=== PATIENT | female | born 1945 | race Caucasian/White ===

== ENCOUNTER 2021-07-21 21:44 | Emergency (ER) | payer MEDICARE, BC, SELFPAY ==
--- NOTE | ~2021-07-21 | CT_ITS ---
EXAMINATION: CT abdomen pelvis wo con DATE: 07/21/2021 22:56 INDICATION: Left upper quadrant abdominal pain TECHNIQUE: Computed tomography (CT) of the abdomen and pelvis was performed without intravenous contr ast. The dose-length product (DLP) was 1282.47 mGy-cm. Automated exposure control and iterative recon struction technique were employed. COMPARISON: None FINDINGS: Minimal dependent atelectasis is present in the lung bases. The heart size is normal. There is a small sliding hiatal hernia. The liver, spleen, pancreas, and adrenal glands are normal. The ga llbladder is surgically absent. The kidneys are unremarkable. No pathologically enlarged abdominal or pelvic lymph nodes are identified. There is no free intraperitoneal gas or evidence of bowel obstruc tion. There are multiple ventral hernias containing fat which can be seen in the right upper quadrant as well as a moderate-sized umbilical hernia containing fat. There is severe lumbar spondylosis. IMPRESSION: 1. No CT correlate for the patient's symptoms. 2. Multiple ventral hernias containing fat. Reviewed, dictated and finalized at location F. PRESS MANAGER
[2021-07-21 21:46] VITALS: BP 138/62; PULSE 64; RESP 14; TEMP 36.4; O2SAT 100
[2021-07-21 22:15] LABS: Basophils Absolute Auto 0.1 K/mm3 (0.0-0.1); Basophils Percent Auto 0.8 % (0.2-1.2); Eosinophils Absolute Auto 0.3 K/mm3 (0-0.3); Eosinophils Percent Auto 2.3 % (0-4.4); Hematocrit 42.5 % (37.0-47.0); Immature Granulocyte Absolute 0.04 K/mm3 (0.00-0.031); Immature Granulocyte Percent A 0.3 % (0-0.5); Lymphocytes Absolute Auto 2.06 K/mm3 (0.9-3.2); Lymphocytes Percent Auto 17.1 % (18.3-44.2); Mean Corpuscular HGB Conc 32.9 g/dl (32-36); Mean Corpuscular Hemoglobin 31.7 pg (26-34); Mean Corpuscular Volume 96.2 fl (80-100); Mean Platelet Volume 9.6 fl (7.4-10.4); Monocytes Absolute Auto 0.6 K/mm3 (0.1-0.6); Monocytes Percent Auto 4.9 % (2.6-8.5); Neutrophils Percent Auto 74.6 % (45.5-73.1); Platelet Count Result 313 k/mm3 (150-375); Red Blood Count 4.42 M/mm3 (4.2-5.4); Red Cell Distribution Width 12.5 % (11.5-14.5); White Blood Count 12.1 K/mm3 (4.5-10.0)
[2021-07-21 22:23] LABS: Prothrombin Time 13.3 Seconds (11.1-14.7)
[2021-07-21 22:24] LABS: Alanine Aminotransferase 19 U/L (4-35); Albumin Level 4.7 g/dL (3.5-5.1); Alkaline Phosphatase 87 U/L (38-126); Anion Gap 6 mmol/L (8-16); Aspartate Amino Transferase 32 U/L (14-36); Bilirubin,Total 0.5 mg/dL (0.2-1.3); Blood Urea Nitrogen 41 mg/dL (7-17); Calcium 9.7 mg/dL (8.4-10.2); Carbon Dioxide 28 mmol/L (22-30); Chloride 102 mmol/L (98-107); Estimated CRCL calculation 24 ml/min; Estimated Glomerular Filt Rate 29; Glucose 154 mg/dL (65-110); Lipase 176 U/L (23-300); Potassium 4.5 mmol/L (3.4-5.0); Sodium 136 mmol/L (137-145)
[2021-07-21 22:33] LABS: Add Urine Microscopic? NO; Appearance Urine Clear (Clear); Bilirubin Urine Negative (Negative); Blood Urine Negative (Negative); Color Urine Yellow (Yellow); Glucose Urine UA Negative (Negative); Ketones Urine Negative (Negative); Leukocyte Esterase Ur Negative LEU/UL (Negative); Nitrate Urine Negative (Negative); Protein Urine Negative (Negative); Specific Grav Ur 1.009 (1.001-1.035); Urobilinogen Urine Negative mg/dL (<2.0)
--- NOTE | 2021-07-21 23:43 | ED.GENADULT ---
HPI - General Adult General Chief complaint: Abdominal Pain Stated complaint: abd pain Time Seen by Provider: 07/21/21 21:44 Source: RN notes reviewed History of Present Illness HPI narrative: Patient presents to emergency department from [facility] via EMS for nausea vomiting. Patient is a poor historian with history of dementia and ANO x1 at baseline history is per the patient as well as staff at [facility]. Per [facility] the patient had one episode of emesis this evening patient also questionably complaining of upper abdominal pain. Per staff there is question of black stools as well. Patient is currently laying in bed she denies any pain at this time denies any nausea patient not currently on any blood thinner Related Data Allergies Allergy/AdvReac Type Severity Reaction Status Date / Time hydrocodone Allergy Intermediate VOMITING Verified 07/21/21 21:59 morphine Allergy Intermediate VOMITING Verified 07/21/21 21:59 amoxicillin Allergy Unknown Unknown Verified 07/21/21 21:59 codeine Allergy Unknown Unknown Verified 07/21/21 21:59 Sulfa (Sulfonamide Allergy Unknown Unknown Verified 07/21/21 21:59 Antibiotics) Review of Systems Review of Systems: Gen.: Denies fevers or chills ENT: Denies congestion Respiratory: Denies shortness of breath CV: Denies chest pain GI: See HPI Musculoskeletal: Denies back pain Neuro: Denies headache Skin: Denies rash Except as documented, all other systems reviewed and negative [facility] Past Medical History Medical History (Updated 07/22/21 @ 00:15 by Farzad Everett DO) Dementia Social History Social History (Updated 07/21/21 @ 23:44 by Farzad Everett DO) Smoking status: Never smoker Exam Narrative: APPEARANCE: No acute distress, nontoxic, resting in bed EYES: EOMI HEENT: Normocephalic, atraumatic, OMM RESPIRATORY: No respiratory distress Clear to auscultation bilaterally with no rhonchi wheezing or rales. CARDIOVASCULAR: Regular rate and rhythm without murmurs rubs or gallops. ABDOMINAL: Soft, nontender, nondistended, no rebound or guarding Rectal: No hemorrhoids or fissures small amount of soft brown stool that is Hemoccult negative MUSCULOSKELETAl: Moves all extremities. No clubbing, cyanosis or edema. NEURO: Awake and alert x 1. Following commands, speech normal, no focal deficits SKIN:: Warm, dry. No rashes lesions or abrasions PSYCHIATRIC: Normal affect/mood, Course Course Emergency Course: Repeat abdominal exam remains soft and nontender Discussed with Dr. Marti presentation work-up. Discussed lab results including creatinine of 1.7. At this time agrees with plan for discharge states will follow with BMP as outpatient Discussed with patient results of workup and diagnosis. Discussed need for follow-up with primary care, proper use of medication, and reasons to return to the emergency department. Patient understands and agrees to current treatment plan Vital Signs Vital signs: Vital Signs Temperature 97.5 F L 07/21/21 21:46 Pulse Rate 64 07/21/21 21:46 Respiratory Rate 14 07/21/21 21:46 Blood Pressure 138/62 07/21/21 21:46 Pulse Oximetry 100 07/21/21 21:46 Temperature 97.5 F L 07/21/21 21:46 Pulse Rate 87 07/22/21 00:50 Respiratory Rate 15 07/22/21 00:50 Blood Pressure 109/62 07/22/21 00:50 Pulse Oximetry 100 07/22/21 00:50 Medical Decision Making [facility] Narrative Medical decision making narrative: Patient presented for episode nausea vomiting questionable left upper quadrant pain no abdominal pain on exam in ED. Rectal exam performed with heme-negative stool. Patient seen in room and had noticed this while in ED and discussed with Dr. Marti will follow as an outpatient Vital Signs Vital Signs: Vital Signs Temperature 97.5 F L 07/21/21 21:46 Pulse Rate 64 07/21/21 21:46 Respiratory Rate 14 07/21/21 21:46 Blood Pressure 138/62 07/21/21 21:46 Pulse Oximetry 100 07/21/21 21:46 Temperature 97.5 F L 07/21/21 21:46
[2021-07-21 23:44] VITALS: BP 92/59; PULSE 66; RESP 17; O2SAT 99
[2021-07-21] MEDS: SODIUM CHLORIDE 0.9% IV 1,000 ML 999 ML IV CONT (23:44)
[2021-07-21 23:49] VITALS: BP 127/68; PULSE 66; O2SAT 99
--- NOTE | 2021-07-22 00:33 | PC.NURSE ---
called [facility] to request transport. ETA [id number]
[2021-07-22 00:50] VITALS: BP 109/62; PULSE 87; RESP 15; O2SAT 100
--- NOTE | 2021-07-22 01:01 | PC.NURSE ---
[facility] here.
== END 2021-07-22 01:16 ==
PROVIDERS: Emergency Provider Emergency Medicine; PCP Family Medicine
DX: R11.2 Nausea with vomiting, unspecified (principal); N28.9 Disorder of kidney and ureter, unspecified; F03.90 Unspecified dementia, unspecified severity, without behavioral disturbance, psychotic disturbance, mood disturbance, and anxiety; Z88.6 Allergy status to analgesic agent; Z88.0 Allergy status to penicillin; Z88.5 Allergy status to narcotic agent; Z88.2 Allergy status to sulfonamides
CPT/HCPCS: 36415; 74176; 80053; 81003; 83605; 83690; 85025; 85610; 85730; 96360; 99284; J7030

== ENCOUNTER 2021-12-24 19:28 | Emergency (ER) | payer MEDICARE, BC, SELFPAY ==
[2021-12-24] VITALS (8 sets, daily range): BP systolic 70–120; BP diastolic 34–71; PULSE 66–95; RESP 18–19; TEMP 36.6; O2SAT 95–99
--- NOTE | ~2021-12-24 | CT_ITS ---
EXAMINATION: CT abdomen pelvis wo con DATE: 12/25/2021 01:00 INDICATION: Diarrhea. Hernia. TECHNIQUE: Computed tomography (CT) of the abdomen and pelvis was performed without intravenous contr ast. The dose-length product was 1427.21 mGy-cm. Automated exposure control and iterative reconstruct ion technique were employed. COMPARISON: CT dated 07/21/2021. FINDINGS: Patchy groundglass opacities of the lower lungs. There is a 6 mm left lower lobe nodule. Th is area of the lung was not included on prior examination for comparison. There is dependent atelecta sis. Heart size normal. No significant pleural or pericardial effusion. There is a hiatal hernia. The re are multiple ventral hernias containing fat, largest in the periumbilical location. The liver, spleen, pancreas, adrenal glands and kidneys are unremarkable. Nonobstructive bowel gas pa ttern. No abnormal pelvic masses or fluid collections. No free air or free fluid. Multiple osseous genevieve cencies are identified throughout the visualized skeleton.. Correlate clinically for history of malig princess. Advanced lower thoracic and lumbar spondylosis with near complete loss of disc space at L2-3 a nd L3-4. IMPRESSION: 1. Patchy groundglass opacities of the lower lungs, suspicious for pneumonia. 6 mm left lower lobe no dule is nonspecific, most likely infectious/inflammatory. Recommend follow-up low dose CT chest in 6 months. 2: Multiple ventral abdominal wall hernias containing fat, largest in the periumbilical location. 3: Multiple lucencies throughout the visualized osseous structures which may represent regional oste openia, although metastatic disease and myeloma are considerations. Correlate clinically for history of malignancy. Reviewed, dictated and finalized at location A. IMPRESSION: 1. Patchy groundglass opacities of the lower lungs, suspicious for pneumonia. 6 mm left lower lobe nodule is nonspecific, most likely infectious/inflammatory. Recommend follow-up low dose CT chest in 6 months. 2: Multiple ventral abdominal wall hernias containing fat, largest in the periu mbilical location. 3: Multiple lucencies throughout the visualized osseous structures which may r epresent regional osteopenia, although metastatic disease and myeloma are consi derations. Correlate clinically for history of malignancy.
[2021-12-24] MEDS: SODIUM CHLORIDE 0.9% IV 1,000 ML 999 ML IV CONT (20:00)
[2021-12-24 20:07] LABS: Appearance Urine Clear (Clear); Bilirubin Urine Negative (Negative); Blood Urine Negative (Negative); Color Urine Yellow (Yellow); Glucose Urine UA Negative (Negative); Ketones Urine Negative (Negative); Leukocyte Esterase Ur Negative LEU/UL (Negative); Nitrate Urine Negative (Negative); Protein Urine Negative (Negative); Urobilinogen Urine 0.2 mg/dL (<2.0)
[2021-12-24 20:07] LABS: Basophils Absolute Auto 0.1 K/mm3 (0.0-0.1); Basophils Percent Auto 1.3 % (0.2-1.2); Eosinophils Absolute Auto 0.5 K/mm3 (0-0.3); Eosinophils Percent Auto 5.4 % (0-4.4); Hematocrit 40.2 % (37.0-47.0); Hemoglobin 12.9 g/dL (12.0-15.0); Immature Granulocyte Absolute 0.04 K/mm3 (0.00-0.031); Immature Granulocyte Percent A 0.4 % (0-0.5); Lymphocytes Absolute Auto 2.43 K/mm3 (0.9-3.2); Lymphocytes Percent Auto 25.8 % (18.3-44.2); Mean Corpuscular HGB Conc 32.1 g/dl (32-36); Mean Corpuscular Hemoglobin 30.6 pg (26-34); Mean Corpuscular Volume 95.3 fl (80-100); Mean Platelet Volume 9.4 fl (7.4-10.4); Monocytes Absolute Auto 0.7 K/mm3 (0.1-0.6); Monocytes Percent Auto 7.8 % (2.6-8.5); Neutrophils Absolute Auto 5.6 K/mm3 (1.3-6.7); Neutrophils Percent Auto 59.3 % (45.5-73.1); Platelet Count Result 359 k/mm3 (150-375); Red Blood Count 4.22 M/mm3 (4.2-5.4); White Blood Count 9.4 K/mm3 (4.5-10.0)
[2021-12-24 20:10] LABS: Mucus Urine Rare /lpf; RBC Urine 0-2 /hpf (0-2); Squamous Epithelial Cell Urine Rare /hpf (Few); WBC Urine 0-3 /hpf
[2021-12-24 20:13] LABS: Add Urine Microscopic? YES
[2021-12-24 20:17] LABS: Alanine Aminotransferase 17 U/L (6-35); Albumin Level 4.4 g/dL (3.5-5.1); Alkaline Phosphatase 81 U/L (38-126); Anion Gap 12 mmol/L (8-16); Aspartate Amino Transferase 27 U/L (14-36); Bilirubin,Total 0.4 mg/dL (0.2-1.3); Blood Urea Nitrogen 53 mg/dL (7-17); Calcium 9.2 mg/dL (8.4-10.2); Carbon Dioxide 24 mmol/L (22-30); Chloride 104 mmol/L (98-107); Estimated CRCL calculation 24 ml/min; Estimated Glomerular Filt Rate 26; Glucose 154 mg/dL (65-110); Lipase 215 U/L (23-300); Potassium 4.8 mmol/L (3.4-5.0); Sodium 140 mmol/L (137-145)
--- NOTE | 2021-12-24 21:01 | ED.GENADULT ---
HPI - General Adult General Chief complaint: Seizure Stated complaint: SYNCOPE VS SEIZURE Time Seen by Provider: 12/24/21 19:35 History of Present Illness HPI narrative: Patient is a 76-year-old female who presents the ER with syncope. Patient was getting up when she became weak. She then lost consciousness in front of her staff. Did not strike her head. Patient then had some increased confusion from her baseline. Upon arrival here patient had massive bowel movement. Patient had not previously been sick or vomiting or having diarrhea. Related Data Allergies Allergy/AdvReac Type Severity Reaction Status Date / Time hydrocodone Allergy Intermediate VOMITING Verified 07/21/21 21:59 morphine Allergy Intermediate VOMITING Verified 07/21/21 21:59 amoxicillin Allergy Unknown Unknown Verified 07/21/21 21:59 codeine Allergy Unknown Unknown Verified 07/21/21 21:59 Sulfa (Sulfonamide Allergy Unknown Unknown Verified 07/21/21 21:59 Antibiotics) Review of Systems Review of Systems: ROS unobtainable: Yes unobtainable due to mental status PMFSH Past Medical History Medical History (Updated 12/25/21 @ 01:57 by Shukri Mckinney MD) CHF (NYHA class III, ACC/AHA stage C) Dementia Dementia due to Alzheimer's disease Hypertension, benign Hypokalemia Impaired mobility and ADLs Surgical History Surgical History (Updated 12/24/21 @ 21:09 by Shukri Mckinney MD) History of section History of cholecystectomy Hx of total knee arthroplasty Social History Social History (Updated 07/21/21 @ 23:44 by Farzad Everett DO) Smoking status: Never smoker Exam Narrative: GENERAL: Chronically ill-appearing, well-nourished, and in no acute distress. HEAD: Normocephalic, atraumatic. EYES: PERRL and EOMI. ENT: Mucous membranes moist. CHEST: Clear to auscultation. No respiratory distress. HEART: Regular rate and rhythm. Normal peripheral pulses. ABDOMEN: Soft, nontender, nondistended, ventral hernias palpated but not reducible. EXTREMITIES: Normal range of motion. No edema. SKIN: Warm, dry, no rash. NEURO: Alert and oriented x1. Course Course Emergency Course: Patient resting comfortably. It was received 1.5 L of fluid. After the first liter of fluid patient had normal orthostatics with laying to sitting. When she stood up her blood pressure did drop so an additional 500 mL was given. Patient then developed blood pressures in the 70s but was asymptomatic and looks well with strong pulses. Ultimately blood pressure cuff was switched to the right arm and patient had a blood pressure in the 130s followed by multiple blood normal blood pressures. CT of the abdomen was unrevealing. Lab work unremarkable with exception of bump in patient's creatinine with elevated BUN as well which correlates with dehydration. Vital Signs Vital signs: Vital Signs Temperature 97.9 F 12/24/21 19:45 Pulse Rate 66 12/24/21 19:45 Respiratory Rate 18 12/24/21 19:45 Blood Pressure 107/57 L 12/24/21 19:45 Pulse Oximetry 95 12/24/21 19:45 Oxygen Delivery Room Air 12/24/21 19:45 Temperature 97.9 F 12/24/21 19:45 Pulse Rate 66 12/25/21 03:02 Respiratory Rate 13 12/25/21 03:02 Blood Pressure 132/74 12/25/21 03:02 Pulse Oximetry 99 12/25/21 03:02 Oxygen Delivery Room Air 12/24/21 19:45 Medical Decision Making Vital Signs Vital Signs: Vital Signs Temperature 97.9 F 12/24/21 19:45 Pulse Rate 66 12/24/21 19:45 Respiratory Rate 18 12/24/21 19:45 Blood Pressure 107/57 L 12/24/21 19:45 Pulse Oximetry 95 12/24/21 19:45 Oxygen Delivery Room Air 12/24/21 19:45 Temperature 97.9 F 12/24/21 19:45 Pulse Rate 66 12/25/21 03:02 Respiratory Rate 13 12/25/21 03:02 Blood Pressure 132/74 12/25/21 03:02 Pulse Oximetry 99 12/25/21 03:02 Oxygen Delivery Room Air 12/24/21 19:45 Lab Data Result diagrams: 12/24/21 20:01 12/24/21 20:01 L
[2021-12-24] MEDS: SODIUM CHLORIDE 0.9% IV 500 ML 999 ML IV CONT (23:39)
[2021-12-25 00:28] VITALS: BP 133/58; PULSE 83; RESP 18; O2SAT 95
[2021-12-25 02:01] VITALS: BP 120/58; PULSE 74; RESP 17; O2SAT 100
[2021-12-25 02:02] VITALS: PULSE 70; RESP 18; O2SAT 99
[2021-12-25 03:02] VITALS: BP 132/74; PULSE 66; RESP 13; O2SAT 99
== END 2021-12-25 03:13 ==
PROVIDERS: Emergency Provider Emergency Medicine; PCP Family Medicine
DX: R55 Syncope and collapse (principal); R19.7 Diarrhea, unspecified; I50.9 Heart failure, unspecified; G30.9 Alzheimer's disease, unspecified; F02.80 Dementia in other diseases classified elsewhere, unspecified severity, without behavioral disturbance, psychotic disturbance, mood disturbance, and anxiety; I11.0 Hypertensive heart disease with heart failure; Z96.659 Presence of unspecified artificial knee joint
CPT/HCPCS: 36415; 74176; 80053; 81001; 83690; 85025; 96360; 96361; 99284; J7030; J7040

== ENCOUNTER 2022-02-19 14:22 | Inpatient (IN) | payer MEDICARE, BC, SELFPAY ==
[2022-02-19] VITALS (30 sets, daily range): BP systolic 76–126; BP diastolic 54–102; PULSE 73–100; RESP 12–24; TEMP 36.1–36.6; O2SAT 90–100; BMI 36.7
--- NOTE | ~2022-02-19 | XR_ITS ---
EXAMINATION: XR chest 1V portable INDICATION: Weakness TECHNIQUE: Portable AP chest at 1456 hours COMPARISON: 10/28/2017 FINDINGS: The lungs are free of acute opacities. No pleural effusion or pneumothorax. The cardiomedia stinal silhouette is normal. The lung volumes are low. IMPRESSION: 1. No acute cardiopulmonary abnormality. Reviewed, dictated and finalized at location L.
--- NOTE | ~2022-02-19 | CT_ITS ---
EXAMINATION: CT brain wo con DATE: 02/20/2022 09:07 INDICATION: Altered mental status TECHNIQUE: Computed tomography (CT) of the head was performed without intravenous contrast. Sagittal and coronal reconstructions were performed. The mA was adjusted according to patient size. Iterative reconstruction technique was employed. The dose-length product was 832.33 mGy-cm. COMPARISON: Brain MR dated 04/28/2015 FINDINGS: No acute intracranial hemorrhage, acute infarction or abnormal extra axial fluid collection. There is extensive scattered white matter hypoattenuation consistent with chronic small vessel ischemic disea se. Symmetric prominence of the sulci and ventricles consistent with moderate age-appropriate diffuse cerebral volume loss. . No mass/mass effect. The orbits, paranasal sinuses and mastoid air cells ar e normal. IMPRESSION: 1. No acute intracranial process. 2. Age-related changes including moderate diffuse volume loss and extensive scattered white matter hy poattenuation consistent with chronic small vessel ischemic disease. Reviewed, dictated and finalized at location A. IMPRESSION: 1. No acute intracranial process. 2. Age-related changes including moderate diffuse volume loss and extensive sca ttered white matter hypoattenuation consistent with chronic small vessel ischem ic disease.
--- NOTE | 2022-02-19 14:50 | ECG_ITS ---
Measurements Intervals [place] Rate: 80 P: 44 IN: 150 QRS: -22 QRSD: 99 T: 66 QT: 379 QTc: 439 Interpretive Statements SINUS RHYTHM VENTRICULAR BIGEMINY BORDERLINE ST-T WAVE ABNORMALITY- HIGH LATERAL LEADS BASELINE ARTIFACT- I, II, III, AVR, AVL, AVF, V1-V6 ABNORMAL ECG Electronically Signed On 02-19-2022 16:07:12 CDT by Sukhjinder Rader D.O.
[2022-02-19] MEDS: SODIUM CHLORIDE 0.9% IV 1,000 ML 999 ML IV CONT ×2 (15:33→16:30)
[2022-02-19 15:45] LABS: Basophils Absolute Auto 0.1 K/mm3 (0.0-0.1); Basophils Percent Auto 0.4 % (0.2-1.2); Eosinophils Percent Auto 0.1 % (0-4.4); Hematocrit 45.9 % (37.0-47.0); Hemoglobin 14.3 g/dL (12.0-15.0); Immature Granulocyte Absolute 0.04 K/mm3 (0.00-0.031); Immature Granulocyte Percent A 0.3 % (0-0.5); Lymphocytes Absolute Auto 2.56 K/mm3 (0.9-3.2); Lymphocytes Percent Auto 18.5 % (18.3-44.2); Mean Corpuscular HGB Conc 31.2 g/dl (32-36); Mean Corpuscular Hemoglobin 30.9 pg (26-34); Mean Corpuscular Volume 99.1 fl (80-100); Mean Platelet Volume 10.4 fl (7.4-10.4); Monocytes Absolute Auto 0.8 K/mm3 (0.1-0.6); Monocytes Percent Auto 5.6 % (2.6-8.5); Neutrophils Absolute Auto 10.4 K/mm3 (1.3-6.7); Neutrophils Percent Auto 75.1 % (45.5-73.1); Platelet Count Result 403 k/mm3 (150-375); Red Blood Count 4.63 M/mm3 (4.2-5.4); Red Cell Distribution Width 13.2 % (11.5-14.5); White Blood Count 13.8 K/mm3 (4.5-10.0)
[2022-02-19 15:53] LABS: Appearance Urine Cloudy (Clear); Bilirubin Urine 1+ (Negative); Blood Urine Negative (Negative); Color Urine Yellow (Yellow); Glucose Urine UA Negative (Negative); Ketones Urine Trace mg/dL (Negative); Leukocyte Esterase Ur 3+ LEU/UL (Negative); Nitrate Urine Negative (Negative); Protein Urine Negative (Negative); Urobilinogen Urine 0.2 mg/dL (<2.0)
[2022-02-19 15:55] LABS: Lactic Acid Reflex 2.2 mmol/L (0.7-2.0)
[2022-02-19 15:58] LABS: Alanine Aminotransferase 27 U/L (6-35); Albumin Level 5.1 g/dL (3.5-5.1); Alkaline Phosphatase 92 U/L (38-126); Anion Gap 18 mmol/L (8-16); Aspartate Amino Transferase 28 U/L (14-36); Bilirubin,Total 0.7 mg/dL (0.2-1.3); Blood Urea Nitrogen 105 mg/dL (7-17); Calcium 9.8 mg/dL (8.4-10.2); Carbon Dioxide 26 mmol/L (22-30); Chloride 110 mmol/L (98-107); Estimated CRCL calculation 10 ml/min; Estimated Glomerular Filt Rate 10; Glucose 148 mg/dL (65-110); Lipase 327 U/L (23-300); Potassium 4.7 mmol/L (3.4-5.0); Sodium 154 mmol/L (137-145)
[2022-02-19 15:59] LABS: Bacteria Urine 3+ /hpf; Mucus Urine Rare /lpf; RBC Urine 0-2 /hpf (0-2); Squamous Epithelial Cell Urine Few /hpf (Few); WBC Urine 51-75 /hpf
[2022-02-19 16:00] LABS: Add Urine Microscopic? YES
--- NOTE | 2022-02-19 16:18 | ED.GENADULT ---
HPI - General Adult General Chief complaint: Fall Stated complaint: unwitnessed fall yesterday - increased weakness Time Seen by Provider: 02/19/22 14:33 History of Present Illness HPI narrative: Patient is a 76-year-old female who presents ER with weakness worsening over the last 2 days. Patient had an unwitnessed fall yesterday. No reports of injury Patient is awake but not oriented. She does not follow commands. There is no evidence of trauma. Related Data Allergies Allergy/AdvReac Type Severity Reaction Status Date / Time hydrocodone Allergy Intermediate VOMITING Verified 02/19/22 15:36 morphine Allergy Intermediate VOMITING Verified 02/19/22 15:36 amoxicillin Allergy Unknown Unknown Verified 02/19/22 15:36 codeine Allergy Unknown Unknown Verified 02/19/22 15:36 Sulfa (Sulfonamide Allergy Unknown Unknown Verified 02/19/22 15:36 Antibiotics) Review of Systems Review of Systems: ROS unobtainable: Yes unobtainable due to medical condition PMFSH Past Medical History Medical History (Updated 02/19/22 @ 16:21 by Shukri Mckinney MD) CHF (NYHA class III, ACC/AHA stage C) Dementia Dementia due to Alzheimer's disease Hypertension, benign Hypokalemia Impaired mobility and ADLs Surgical History Surgical History (Updated 12/24/21 @ 21:09 by Shukri Mckinney MD) History of section History of cholecystectomy Hx of total knee arthroplasty Social History Social History (Updated 07/21/21 @ 23:44 by Farzad Everett DO) Smoking status: Never smoker Exam Narrative: GENERAL: Chronically ill-appearing, elderly, well-nourished.. HEAD: Normocephalic, atraumatic. ENT: Mucous membranes moist. CHEST: Clear to auscultation. No respiratory distress. HEART: Regular rate and rhythm. Normal peripheral pulses. ABDOMEN: Soft, nontender, nondistended. EXTREMITIES: Normal range of motion. No edema. SKIN: Warm, dry, no rash. NEURO: Awake and alert but not oriented and does not follow commands. PSYCH: Normal mood and affect. Course Course Emergency Course: Admit to hospitalist service. Patient given 2 L IV fluid as well as IV ceftriaxone for UTI. My normal adult exam Vital Signs Vital signs: Vital Signs Temperature 97.9 F 02/19/22 14:39 Pulse Oximetry 98 02/19/22 14:39 Temperature 97.5 F L 02/19/22 14:43 Pulse Rate 73 02/19/22 16:32 Respiratory Rate 18 02/19/22 16:32 Blood Pressure 103/77 02/19/22 16:32 Pulse Oximetry 97 02/19/22 16:32 Oxygen Delivery Room Air 02/19/22 14:52 Medical Decision Making Vital Signs Vital Signs: Vital Signs Temperature 97.9 F 02/19/22 14:39 Pulse Oximetry 98 02/19/22 14:39 Temperature 97.5 F L 02/19/22 14:43 Pulse Rate 73 02/19/22 16:32 Respiratory Rate 18 02/19/22 16:32 Blood Pressure 103/77 02/19/22 16:32 Pulse Oximetry 97 02/19/22 16:32 Oxygen Delivery Room Air 02/19/22 14:52 Lab Data Result diagrams: 02/19/22 15:33 02/19/22 15:33 Labs: Lab Results 02/19/22 02/19/22 02/19/22 Range/Units 15:33 15:33 15:33 WBC 13.8 H (4.5-10.0) K/mm3 RBC 4.63 (4.2-5.4) M/mm3 Hgb 14.3 (12.0-15.0) g/dL Hct 45.9 (37.0-47.0) % MCV 99.1 (80-100) fl MCH 30.9 (26-34) pg MCHC 31.2 L (32-36) g/dl RDW 13.2 (11.5-14.5) % Plt Count 403 H (150-375) k/mm3 MPV 10.4 (7.4-10.4) fl Immature Gran % (Auto) 0.3 (0-0.5) % Neut % (Auto) 75.1 H (45.5-73.1) % Lymph % (Auto) 18.5 (18.3-44.2) % Cocke % (Auto) 5.6 (2.6-8.5) % Eos % (Auto) 0.1 (0-4.4) % Baso % (Auto) 0.4 (0.2-1.2) % Lymph # (Auto) 2.56 (0.9-3.2) K/mm3 Cocke # (Auto) 0.8 H (0.1-0.6) K/mm3 Eos # (Auto) 0.0 (0-0.3) K/mm3 Baso # (Auto) 0.1 (0.0-0.1) K/mm3 Abs Immat Gran (auto) 0.04 H (0.00-0.031) K/mm3 Absolute Neuts (auto) 10.4 H (1.3-6.7) K/mm3 Absolute Nucleated RBC 0.0 (0.0-0.012) K/mm3 Nucleated RBC % 0.0 (0
[2022-02-19 16:22] LABS: SARS-CoV-2 RNA PCR Negative
--- NOTE | 2022-02-19 17:00 | PM.IMHP ---
H&P: HPI History of Present Illness Date/Time: 02/19/22 17:00 Chief Complaint: Weakness and altered mental status. Narrative: This is a 76-year-old female with history of dementia, diabetes, and hypertension who presented to the emergency department via EMS from [facility] for evaluation of weakness and altered mental status. She has her eyes closed majority of the time that I am in the room however she would open them to voice however she is not really following commands or answering questions. As such all of the following is obtained via a review of her electronic medical records. According to the triage note staff at [facility] have noticed that the patient has been increasingly weak the last several days and she has been refusing to eat and her urine output has dropped off. Last night she had a ground level fall which was reportedly related to weakness in her legs and she slipped and fell onto her buttocks without head trauma or injury. Blood pressures were soft on arrival to the ER but have improved with IV fluids. Pertinent labs include a marked elevation of BUN and creatinine from baseline and a sodium of 154. She was also found to have evidence of urinary tract infection and she is being admitted in this setting. She has no current complaints but again she really does not answer questions. Review of Systems Review of Systems: Unable to obtain given current clinical condition. [facility] Past Medical History Medical History (Updated 02/20/22 @ 00:41 by Clementina Romano PA-C) Chronic kidney disease Congestive heart failure Dementia due to Alzheimer's disease Hyperlipidemia Hypertension Osteoarthritis Surgical History Surgical History (Updated 02/20/22 @ 00:34 by Clementina Romano PA-C) History of benign breast biopsy Left. History of bilateral knee arthroplasty History of section X3 History of cholecystectomy History of excision of epidermal inclusion cyst Left neck. History of laparoscopy With adhesiolysis. History of toe surgery Right great toe joint replacement. Family History Family History (Updated 02/20/22 @ 00:34 by Clementina Romano PA-C) Other Acute myocardial infarction Cancer Social History Social History (Updated 02/20/22 @ 00:35 by Clementina Romano PA-C) Social History: The patient resides at an extended care facility. No alcohol, tobacco, or illicit substance use. Her daughter, Carlene Kidd, is her healthcare power of patent attorney. Code status: Full code. Meds Home Medications and Allergies Allergies Allergy/AdvReac Type Severity Reaction Status Date / Time hydrocodone Allergy Intermediate VOMITING Verified 02/19/22 15:36 morphine Allergy Intermediate VOMITING Verified 02/19/22 15:36 amoxicillin Allergy Unknown Unknown Verified 02/19/22 15:36 codeine Allergy Unknown Unknown Verified 02/19/22 15:36 Sulfa (Sulfonamide Allergy Unknown Unknown Verified 02/19/22 15:36 Antibiotics) Vital Signs Vital Signs - 24 hr 02/19/22 14:43 02/19/22 14:52 02/19/22 14:39 Temperature 97.5 F L 97.9 F Pulse Rate 77 85 Respiratory Rate 13 24 H Blood Pressure 93/83 L 76/55 L Pulse Oximetry 96 93 98 Oxygen Delivery Room Air 02/19/22 14:41 02/19/22 14:45 02/19/22 14:56 Temperature Pulse Rate 81 86 Respiratory Rate 16 12 Blood Pressure 93/83 L 84/67 L Pulse Oximetry 98 Oxygen Delivery 02/19/22 15:00 02/19/22 15:03 02/19/22 15:15 Temperature Pulse Rate 76 84 Respiratory Rate 13 17 14 Blood Pressure 106/75 Pulse Oximetry 98 Oxygen Delivery 02/19/22 15:17 02/19/22 15:31 02/19/22 16:32 Temperature Pulse Rate 83 83 73 Respiratory Rate 14 18 18 Blood Pressure 94/54 L 101/54 L 103/77 Pulse Oximetry 100 97 Oxygen Delivery 02/19/22 15:32 02/19/22 16:13 02/19/22 16:49 Temperature Pulse Rate 76 90 94 Respiratory Rate 15 16 14 Blood Pressure 103/77 Pulse Oximetry 97 97 Oxygen Delivery 02/19/22 16
[2022-02-19] MEDS: SODIUM CHLORIDE 0.9% IV 1,000 ML 125 ML IV CONT (18:08)
[2022-02-19 18:41] LABS: Reflex Lactic Acid Yes or No Add Lactic
[2022-02-19 19:17] LABS: Lactic Acid 1.2 mmol/L (0.7-2.0)
--- NOTE | 2022-02-19 20:57 | ADMGEN ---
This patient, Rody Ardon, was admitted to [facility] Surg Room 324-01. Patient/family oriented to hospital policies and general routines including ID bracelet, bed and alarms, visiting hours, pain management, procedures, bathroom and other care routines, personal items, smoking policy, room service/diet, and visiting hours. Information on how to activate the Rapid Response Team has been discussed. Patient/Family are encouraged to report perceived risks to care and to ask questions if they do not understand what they are told or what they should do.
[2022-02-19 21:51] LABS: Magnesium 2.8 mg/dL (1.6-2.3)
[2022-02-20] VITALS: BP 114/84; PULSE 83; RESP 20; TEMP 36.1; O2SAT 90
[2022-02-20 01:34] LABS: Anion Gap 12 mmol/L (8-16); Blood Urea Nitrogen 87 mg/dL (7-17); Calcium 8.7 mg/dL (8.4-10.2); Carbon Dioxide 23 mmol/L (22-30); Chloride 119 mmol/L (98-107); Estimated CRCL calculation 15 ml/min; Estimated Glomerular Filt Rate 16; Glucose 123 mg/dL (65-110); Magnesium 2.3 mg/dL (1.6-2.3); Sodium 154 mmol/L (137-145)
[2022-02-20] MEDS: DEXTROSE 5% 1,000 ML 1,000 ML 85 ML IV CONT ×2 (03:59→17:01)
[2022-02-20 04:52] LABS: Glucose Point of Care 109 mg/dl (65-105)
[2022-02-20 06:00] VITALS: BP 120/84; PULSE 69; RESP 20; TEMP 36.2; O2SAT 99
[2022-02-20 06:25] LABS: Hematocrit 41.4 % (37.0-47.0); Hemoglobin 12.7 g/dL (12.0-15.0); Mean Corpuscular HGB Conc 30.7 g/dl (32-36); Mean Corpuscular Hemoglobin 31.2 pg (26-34); Mean Corpuscular Volume 101.7 fl (80-100); Mean Platelet Volume 10.5 fl (7.4-10.4); Platelet Count Result 301 k/mm3 (150-375); Red Blood Count 4.07 M/mm3 (4.2-5.4); Red Cell Distribution Width 13.1 % (11.5-14.5)
[2022-02-20 06:36] LABS: Anion Gap 12 mmol/L (8-16); Blood Urea Nitrogen 80 mg/dL (7-17); Calcium 8.7 mg/dL (8.4-10.2); Carbon Dioxide 24 mmol/L (22-30); Chloride 118 mmol/L (98-107); Estimated CRCL calculation 17 ml/min; Estimated Glomerular Filt Rate 20; Glucose 119 mg/dL (65-110); Magnesium 2.4 mg/dL (1.6-2.3); Phosphorus 3.8 mg/dL (2.5-4.5); Potassium 4.1 mmol/L (3.4-5.0); Sodium 154 mmol/L (137-145)
[2022-02-20 08:05] LABS: Glucose Point of Care 118 mg/dl (65-105)
[2022-02-20 09:03] LABS: Sodium 153 mmol/L (137-145)
--- NOTE | 2022-02-20 09:34 | PM.IMPN ---
Progress Note: A&P Assessment and Plan (1) Metabolic encephalopathy: Code(s): G93.41 - Metabolic encephalopathy Status: Acute Assessment and Plan: - Etiology uncertain, but differential includes Acute UTI, Uremia, Hypernatremia, or just an exacerbation of her dementia. - Monitor labs and VS. - Ammonia level ordered. - Pt. converses only minimally and not purposefully. She will not follow all commands and she will not answer questions appropriately. (2) Acute on chronic kidney failure: Code(s): N17.9 - Acute kidney failure, unspecified; N18.9 - Chronic kidney disease, unspecified Status: Acute Assessment and Plan: - Elevated CR/BUN. Baseline is 1.7-2.0 - Concern for Uremia and does appear profoundly dehydrated. - Pt. did not receive her IVF last evening. They were turned on and then ran on the floor, as the pt. was not connected to the tubing. - Continue to monitor renal function with daily lab draws as well as continue to monitor UOP. - If no improvement after actually receiving the IVF, consider consult to Nephrology. (3) Hypernatremia: Code(s): E87.0 - Hyperosmolality and hypernatremia Status: Acute Assessment and Plan: - Reassess every 4 hours given the marginal decline secondary to the patient's fluids not infusing into her as was ordered. - Na currently 153. - Urine and serum osmolality are ordered as well as urine sodium. Dehydration vs. DI (4) Dehydration: Code(s): E86.0 - Dehydration Status: Acute Assessment and Plan: - See above POC. (5) Urinary tract infection: Code(s): N39.0 - Urinary tract infection, site not specified Status: Acute Assessment and Plan: - Urine culture is pending. Will follow to completion. - Continue IV abx. (6) Congestive heart failure: Code(s): I50.9 - Heart failure, unspecified Status: Acute Assessment and Plan: - No documentation in EMR. - Not currently symptomatic and appears to be euvolemic. - Continue to monitor hydration status with PE and labs. - Additional Plan Barrier to discharge: Resolution of marked Hypernatremia, urine culture, and resolution vs. improvement of ANABELL. Time Spent With Patient Time: 24 minutes Subjective Date/time seen: 02/20/22 09:42 This pleasantly confused, elderly female pt. who resides at a skilled nursing normally, was examined at the bedside today in interval assessment after being admitted to the hospital with ANABELL, UTI, Hypernatremia and metabolic encephalopathy. Patient is completely confused. She is alert and drinking orange juice upon my entry into the room as she is being fed by the patient acute care certified nursing assistant, however upon starting to talk to her she will smile at me and tell me well that it , but she will not answer any questions meaningfully if speak to me at all. She does not appear to be in any acute distress at this time. I was informed by the patient's RN that the IV fluids that were ordered for the patient which is D5 NS in light of her having hyperkalemia were started but not actually connected to the patient last night so the IV fluid renal over the floor and patient did not receive. This has been rectified and we will continue to monitor her sodium level every 4 hours. Urine culture is still pending. Review of Systems Review of Systems: Pt. will not answer questions to allow me to complete ROS, however, she does not appear to currently be in any distress at this time. ROS unobtainable: Yes unobtainable due to mental status Exam Const: General: comfortable and no acute distress Other: Elderly female patient sitting up in bed drinking orange juice at this time without any difficulty and she does not appear to be in any acute distress. She smiles pleasantly, but does not make any attempt to verbalize. HENMT: General nose exam: Normal nares present and no epistaxis Mouth: Yes moist mucous membranes Eyes: General: ap
[2022-02-20 11:43] LABS: Glucose Point of Care 150 mg/dl (65-105)
[2022-02-20 12:18] VITALS: BMI 10.0
[2022-02-20 12:36] LABS: Ammonia < 9 umol/L (9-30)
[2022-02-20 12:48] LABS: Sodium 153 mmol/L (137-145)
[2022-02-20 14:00] VITALS: BP 115/67; PULSE 70; RESP 14; TEMP 36.6; O2SAT 97
[2022-02-20 17:01] LABS: Sodium Urine Random 141 meq/L
[2022-02-20 17:04] LABS: Sodium 150 mmol/L (137-145)
[2022-02-20 17:05] LABS: Glucose Point of Care 88 mg/dl (65-105)
[2022-02-20] MEDS: SENNA/DOCUSATE SODIUM TABLET 1 TAB PO (17:05)
[2022-02-20 20:40] VITALS: PULSE 83; RESP 18; O2SAT 90
[2022-02-20 20:59] LABS: Sodium 146 mmol/L (137-145)
[2022-02-20] MEDS: DONEPEZIL HCL 10 MG TABLET PO (21:17)
[2022-02-20 21:38] VITALS: BP 117/75; PULSE 83; RESP 18; TEMP 36.1; O2SAT 90
[2022-02-21 00:03] LABS: Glucose Point of Care 105 mg/dl (65-105)
[2022-02-21 01:27] LABS: Sodium 144 mmol/L (137-145)
[2022-02-21 06:00] VITALS: BP 128/67; PULSE 62; RESP 16; TEMP 36.4; O2SAT 98
[2022-02-21 06:27] LABS: Basophils Absolute Auto 0.1 K/mm3 (0.0-0.1); Eosinophils Absolute Auto 0.3 K/mm3 (0-0.3); Eosinophils Percent Auto 3.2 % (0-4.4); Hematocrit 37.5 % (37.0-47.0); Hemoglobin 11.5 g/dL (12.0-15.0); Immature Granulocyte Absolute 0.02 K/mm3 (0.00-0.031); Immature Granulocyte Percent A 0.2 % (0-0.5); Lymphocytes Absolute Auto 3.54 K/mm3 (0.9-3.2); Lymphocytes Percent Auto 39.4 % (18.3-44.2); Mean Corpuscular HGB Conc 30.7 g/dl (32-36); Mean Corpuscular Hemoglobin 30.3 pg (26-34); Mean Corpuscular Volume 98.7 fl (80-100); Mean Platelet Volume 10.2 fl (7.4-10.4); Monocytes Absolute Auto 0.5 K/mm3 (0.1-0.6); Monocytes Percent Auto 5.8 % (2.6-8.5); Neutrophils Absolute Auto 4.5 K/mm3 (1.3-6.7); Neutrophils Percent Auto 50.4 % (45.5-73.1); Platelet Count Result 259 k/mm3 (150-375); Red Cell Distribution Width 12.7 % (11.5-14.5)
[2022-02-21 06:31] LABS: Alanine Aminotransferase 27 U/L (6-35); Albumin Level 3.7 g/dL (3.5-5.1); Alkaline Phosphatase 69 U/L (38-126); Anion Gap 10 mmol/L (8-16); Aspartate Amino Transferase 30 U/L (14-36); Bilirubin,Total 0.6 mg/dL (0.2-1.3); Blood Urea Nitrogen 51 mg/dL (7-17); Calcium 8.7 mg/dL (8.4-10.2); Carbon Dioxide 24 mmol/L (22-30); Chloride 109 mmol/L (98-107); Estimated CRCL calculation 26 ml/min; Estimated Glomerular Filt Rate 31; Glucose 113 mg/dL (65-110); Magnesium 1.9 mg/dL (1.6-2.3); Potassium 3.5 mmol/L (3.4-5.0); Sodium 143 mmol/L (137-145)
[2022-02-21 08:00] VITALS: BP 125/69; PULSE 65; RESP 18; TEMP 36.7; O2SAT 97
[2022-02-21 08:01] LABS: Glucose Point of Care 108 mg/dl (65-105)
[2022-02-21 08:57] VITALS: O2SAT 92
[2022-02-21] MEDS: CHOLECALCIFEROL 1,000 UNITS TABLET 5000 UNITS PO (09:04)
[2022-02-21] MEDS: MEMANTINE HCL XR 28 MG CAP PO (09:04)
[2022-02-21] MEDS: polyethylene glycoL 3350 17 GM POWD.PACK PO (09:04)
[2022-02-21] MEDS: POTASSIUM CHLORIDE 10 MEQ TABLET.ER PO (09:05)
[2022-02-21] MEDS: hydroCHLOROthiazide 25 MG TABLET PO (09:05)
[2022-02-21] MEDS: lisinopriL 2.5 MG TABLET PO (09:05)
[2022-02-21] MEDS: LORATADINE 10 MG TABLET PO (09:05)
[2022-02-21] MEDS: SENNA/DOCUSATE SODIUM TABLET 1 TAB PO ×2 (09:05→16:25)
[2022-02-21] MEDS: PANTOPRAZOLE 40 MG TABLET PO (09:05)
[2022-02-21 11:40] LABS: Glucose Point of Care 123 mg/dl (65-105)
--- NOTE | 2022-02-21 12:04 | PM.IMPN ---
Progress Note: A&P Assessment and Plan (1) Metabolic encephalopathy: Code(s): G93.41 - Metabolic encephalopathy Status: Acute Assessment and Plan: - Etiology uncertain, but differential includes Acute UTI, Uremia, Hypernatremia, or just an exacerbation of her dementia. - Monitor labs and VS. - Ammonia level performed yesterday and was <9. - Pt. converses only minimally and not purposefully. She will not follow all commands and she will not answer questions appropriately. (2) Acute on chronic kidney failure: Code(s): N17.9 - Acute kidney failure, unspecified; N18.9 - Chronic kidney disease, unspecified Status: Acute Assessment and Plan: - Elevated CR/BUN. Baseline is 1.7-2.0 - Concern for Uremia and does appear profoundly dehydrated. - Pt. did not receive her IVF last evening. They were turned on and then ran on the floor, as the pt. was not connected to the tubing. - Pt. with return to better than baseline renal function today with Creatinine of 1.6/51. - Continue to monitor renal function with daily lab draws as well as continue to monitor UOP. - If no improvement after actually receiving the IVF, consider consult to Nephrology. (3) Hypernatremia: Code(s): E87.0 - Hyperosmolality and hypernatremia Status: Acute Assessment and Plan: - Na currently normal at 143. Remains asymptomatic and we will discontinue Q4 hrs Sodium levels. - Urine and serum osmolality are ordered as well as urine sodium. Dehydration vs. DI - Most likely Dehydration related, but Urine and serum osmolalities are in process. (4) Dehydration: Code(s): E86.0 - Dehydration Status: Resolved Assessment and Plan: - See above POC. (5) Urinary tract infection: Code(s): N39.0 - Urinary tract infection, site not specified Status: Acute Assessment and Plan: - E.coli, sensitive to the Rocephin she is currently receiving grew out. - Continue IV abx. (6) Congestive heart failure: Code(s): I50.9 - Heart failure, unspecified Status: Acute Assessment and Plan: - No documentation in EMR. - Not currently symptomatic and appears to be euvolemic. - Continue to monitor hydration status with PE and labs. Time Spent With Patient Time: 15 minutes Subjective Date/time seen: 02/21/22 0920 This pleasantly confused female patient was examined at the bedside today in interval assessment for her Hypernatremia and UTI admission with encephalopathy. Her urine culture resulted this morning and it grew out E.coli that is sensitive to the Rocephin that she is receiving. In addition, her sodium today is corrected to 143. She is alert and although she does not say much, when you say her name, she turns to your direction and makes eye contact. She is a poor historian, but when asked if she is having any pain, she says, no. I asked where she was and she said, here. She is otherwise not oriented. Pt. does not appear to have any acute distress at this time and appears comfortable. Review of Systems Review of Systems: ROS unobtainable: Yes unobtainable due to mental status Exam Const: General: comfortable and no acute distress Other: Mostly non-verbal. She answers correctly to whether or not she has pain. She does appear to be comfortable which would be in line with her reply. HENMT: General nose exam: Normal nares present and no epistaxis Mouth: Yes moist mucous membranes Eyes: General: appearance normal, both eyes and all related structures Sclera: sclerae normal Pupils: Equal, round and reactive pupils present Other: Pt does not follow commands to assess the EOM's. Neck: Neck: supple and no JVD Thyroid: thyroid normal Carotids: no bruits Lymphatic: lymphadenopathy not noted Resp: Effort & Inspection: normal respiratory effort Auscultation: clear to auscultation bilaterally Cardio: Rate: regular rate Rhythm: regular rhythm and regu
[2022-02-21 14:00] VITALS: BP 110/65; PULSE 73; RESP 16; TEMP 36.4; O2SAT 95
[2022-02-21] MEDS: DEXTROSE 5% 1,000 ML 1,000 ML 85 ML IV CONT (14:04)
[2022-02-21 16:53] LABS: Glucose Point of Care 111 mg/dl (65-105)
[2022-02-21 20:00] VITALS: PULSE 98; RESP 16; O2SAT 99
[2022-02-21] MEDS: DONEPEZIL HCL 10 MG TABLET PO (20:43)
[2022-02-21 22:00] VITALS: BP 100/55; PULSE 98; RESP 16; TEMP 37.1; O2SAT 99
[2022-02-21 22:10] LABS: Glucose Point of Care 127 mg/dl (65-105)
[2022-02-22] VITALS: BP 110/58; PULSE 88; RESP 16; TEMP 37.1; O2SAT 99
[2022-02-22] MEDS: DEXTROSE 5% 1,000 ML 1,000 ML 85 ML IV CONT (03:18)
[2022-02-22 05:43] VITALS: BP 102/60; PULSE 84; RESP 16; TEMP 36.9; O2SAT 99
[2022-02-22 06:16] LABS: Basophils Absolute Auto 0.1 K/mm3 (0.0-0.1); Basophils Percent Auto 0.6 % (0.2-1.2); Eosinophils Absolute Auto 0.4 K/mm3 (0-0.3); Eosinophils Percent Auto 3.8 % (0-4.4); Hematocrit 36.8 % (37.0-47.0); Immature Granulocyte Absolute 0.05 K/mm3 (0.00-0.031); Immature Granulocyte Percent A 0.5 % (0-0.5); Lymphocytes Absolute Auto 3.43 K/mm3 (0.9-3.2); Lymphocytes Percent Auto 31.6 % (18.3-44.2); Mean Corpuscular HGB Conc 32.6 g/dl (32-36); Mean Corpuscular Hemoglobin 31.2 pg (26-34); Mean Corpuscular Volume 95.6 fl (80-100); Mean Platelet Volume 10.2 fl (7.4-10.4); Monocytes Absolute Auto 0.7 K/mm3 (0.1-0.6); Monocytes Percent Auto 6.3 % (2.6-8.5); Neutrophils Absolute Auto 6.2 K/mm3 (1.3-6.7); Neutrophils Percent Auto 57.2 % (45.5-73.1); Platelet Count Result 266 k/mm3 (150-375); Red Blood Count 3.85 M/mm3 (4.2-5.4); Red Cell Distribution Width 12.4 % (11.5-14.5); White Blood Count 10.9 K/mm3 (4.5-10.0)
[2022-02-22 06:36] LABS: Alanine Aminotransferase 24 U/L (6-35); Albumin Level 3.6 g/dL (3.5-5.1); Alkaline Phosphatase 66 U/L (38-126); Anion Gap 11 mmol/L (8-16); Aspartate Amino Transferase 22 U/L (14-36); Bilirubin,Total 0.3 mg/dL (0.2-1.3); Blood Urea Nitrogen 43 mg/dL (7-17); Calcium 8.4 mg/dL (8.4-10.2); Carbon Dioxide 22 mmol/L (22-30); Chloride 100 mmol/L (98-107); Estimated CRCL calculation 23 ml/min; Estimated Glomerular Filt Rate 34; Glucose 149 mg/dL (65-110); Magnesium 1.7 mg/dL (1.6-2.3); Potassium 3.3 mmol/L (3.4-5.0); Sodium 133 mmol/L (137-145)
[2022-02-22 07:59] LABS: Glucose Point of Care 149 mg/dl (65-105)
--- NOTE | 2022-02-22 08:20 | PM.DS ---
DS: Admitting Diagnosis Discharge Date 02/22/2022 Admitting Diagnosis Metabolic encephalopathy, acute on chronic kidney failure, hypernatremia, dehydration, UTI, CHF DS: Discharge Diagnosis Discharge Diagnosis (1) Metabolic encephalopathy: Code(s): G93.41 - Metabolic encephalopathy Status: Acute Assessment and Plan: - Improved during hospitalization, likely secondary to her acute UTI. At baseline pt. has altered levels of orientation, and it is likely so at this time as she is demented. She has returned to baseline. (2) Acute on chronic kidney failure: Code(s): N17.9 - Acute kidney failure, unspecified; N18.9 - Chronic kidney disease, unspecified Status: Resolved Assessment and Plan: - Elevated CR/BUN. Baseline is 1.7-2.0 - Etiology was secondary to her dehydration. This has improved today and her renal function is better than at her normal baseline. She is well hydrated and is ready for discharge at this time. (3) Hypernatremia: Code(s): E87.0 - Hyperosmolality and hypernatremia Status: Resolved Assessment and Plan: - Resolved. Current sodium is 133. (4) Dehydration: Code(s): E86.0 - Dehydration Status: Resolved Assessment and Plan: - See above POC. (5) Urinary tract infection: Code(s): N39.0 - Urinary tract infection, site not specified Status: Acute Assessment and Plan: - E.coli, sensitive to the Rocephin she is currently receiving grew out. - Pt. stable to be discharged to SNF today with Levaquin 750 mg po x7 days for continued treatment of her acute UTI. (6) Congestive heart failure: Code(s): I50.9 - Heart failure, unspecified Status: Inactive Assessment and Plan: - No documentation in EMR. - Not currently symptomatic and appears to be euvolemic. - Continue to monitor hydration status with PE and labs. DS: Summary Hospital Course Reason for hospitalization: Weakness and altered mental status in the setting of chronic dementia and acute UTI, dehydration and Hypernatremia. Hospital Course: This pleasantly confused 76 year old female patient with significant PMH of dementia with baseline be alert oriented x1, diabetes, hypertension who presented to the emergency room on 02/19/2022 after staff at [facility] where she resides endorse that she had been increasingly weak for several days, having decreased appetite and weakness that resulted in a ground level fall without head trauma or injury. In the emergency room workup was performed and demonstrated acute dehydration, acute UTI, Acute hypernatremia with sodium level of 154 and she was admitted to the hospital at that time for further evaluation and management. While here her urine grew out E coli that was sensitive to the Rocephin that she was receiving, and she will be discharged today with Levaquin 750 mg p.o. daily for 7 days. Her mental status has returned to her baseline, and her electrolyte derangement has resolved. Patient noted to be eating better and being more interactive. She is stable discharge at this time. Status at Discharge Cognitive/behavioral status at discharge: Pt. does not follow commands, therefore the PT evaluation was not able to be performed. This is her baseline functioning status. Overall status at discharge: patient is progressing back to baseline Time Spent with Patient Time attestation: Total time spent providing and/or coordinating discharge serv Time spent: Greater than 30 minutes Specific discharge activities: POC post discharge with follow up instructions and discussion of the need for continued outpatient abx. Exam Const: General: comfortable and no acute distress Other: Mostly non-verbal. She answers correctly to whether or not she has pain. She does appear to be comfortable which would be in line with her reply. HENMT: General nose exam: Normal nares present and no epistaxis Mouth: Y
[2022-02-22] MEDS: CHOLECALCIFEROL 1,000 UNITS TABLET 5000 UNITS PO (09:57)
[2022-02-22] MEDS: POTASSIUM CHLORIDE 20 MEQ PACKET (FOR LIQUID) 40 MEQ PO (09:58)
[2022-02-22] MEDS: LORATADINE 10 MG TABLET PO (09:59)
[2022-02-22] MEDS: hydroCHLOROthiazide 25 MG TABLET PO (09:59)
[2022-02-22] MEDS: lisinopriL 2.5 MG TABLET PO (09:59)
[2022-02-22] MEDS: PANTOPRAZOLE 40 MG TABLET PO (09:59)
[2022-02-22] MEDS: polyethylene glycoL 3350 17 GM POWD.PACK PO (10:00)
[2022-02-22] MEDS: MEMANTINE HCL XR 28 MG CAP PO (10:00)
[2022-02-22] MEDS: SENNA/DOCUSATE SODIUM TABLET 1 TAB PO (10:00)
[2022-02-22] MEDS: POTASSIUM CHLORIDE 10 MEQ TABLET.ER PO (10:00)
[2022-02-22 11:35] LABS: Glucose Point of Care 127 mg/dl (65-105)
[2022-02-22 12:02] LABS: EDCOVIDSCREEN Negative (Negative)
[2022-02-22 14:00] VITALS: BP 93/49; PULSE 68; RESP 16; TEMP 35.9; O2SAT 100
[2022-02-24 16:41] LABS: Osmolality, Urine 640 mOsm/kg (50-1200)
== END 2022-02-22 14:40 | DRG 689 ==
LOC: ANHED 16:52 → ANH3MEDSUR 19:10
PROVIDERS: Physician Assistant; Admitting Provider Internal Medicine; Emergency Provider Emergency Medicine; PCP Family Medicine; Visit Provider Nurse Practitioner Adult Health
DX: N39.0 Urinary tract infection, site not specified (principal); G93.41 Metabolic encephalopathy; N17.9 Acute kidney failure, unspecified; E87.0 Hyperosmolality and hypernatremia; I13.0 Hypertensive heart and chronic kidney disease with heart failure and stage 1 through stage 4 chronic kidney disease, or unspecified chronic kidney disease; B96.20 Unspecified Escherichia coli [E. coli] as the cause of diseases classified elsewhere; E11.22 Type 2 diabetes mellitus with diabetic chronic kidney disease; N18.9 Chronic kidney disease, unspecified; I50.9 Heart failure, unspecified; W01.0XXA Fall on same level from slipping, tripping and stumbling without subsequent striking against object, initial encounter; E86.0 Dehydration; G30.9 Alzheimer's disease, unspecified; F02.80 Dementia in other diseases classified elsewhere, unspecified severity, without behavioral disturbance, psychotic disturbance, mood disturbance, and anxiety; E87.6 Hypokalemia; Z96.653 Presence of artificial knee joint, bilateral; Z96.698 Presence of other orthopedic joint implants; Z90.49 Acquired absence of other specified parts of digestive tract
CPT/HCPCS: 36415; 51701; 70450; 71045; 80048; 80053; 81001; 82140; 82948; 83605; 83690; 83735; 83930; 83935; 84100; 84295; 84300; 85025; 85027; 87040; 87077; 87086; 87186; 87426; 93005; 96365; 96366; 96367; 97161; 97165; 99285; A9270; C9803; G0378; J0696; J7030; J7070; U0003; U0005

== ENCOUNTER 2022-07-06 14:27 | Inpatient (IN) | payer MEDICARE, BC, SELFPAY ==
[2022-07-06] VITALS (13 sets, daily range): BP systolic 96–126; BP diastolic 55–88; PULSE 87–115; RESP 14–24; TEMP 36.1–36.5; O2SAT 96–100; BMI 27.6; BMI 28.3
--- NOTE | ~2022-07-06 | XR_ITS ---
EXAMINATION: XR abdomen NG/feed tube insert INDICATION: Nasogastric tube insertion TECHNIQUE: Portable AP KUB-[id number] at 1815 hours COMPARISON: 0637 hours FINDINGS: The repositioned nasogastric tube ends with its tip in the third portion of the duodenum. T he bowel gas pattern is normal. The visualized lung bases are clear. IMPRESSION: 1. Repositioned nasogastric tube in the third portion of the duodenum. If positioning in the stomach is desired, recommend retracting 8 to 10 cm. Reviewed, dictated and finalized at location F. CTOR AIRPORT IMPRESSION: 1. Repositioned nasogastric tube in the third portion of the duodenum. If posit ioning in the stomach is desired, recommend retracting 8 to 10 cm.
--- NOTE | ~2022-07-06 | MR_ITS ---
EXAMINATION: MR brain/brain stem wo con DATE: 07/12/2022 13:46 INDICATION: Altered mental status. TECHNIQUE: Magnetic resonance imaging (MRI) of the brain and brainstem was performed without intraven ous contrast. COMPARISON: Brain MRI 04/28/2015, head CT 07/07/2022 FINDINGS: There is diffuse brain volume loss. There are scattered areas of nonspecific increased T2-w eighted signal intensity in the cerebral white matter. There is no intracranial hemorrhage, acute inf arction, or abnormal intracranial mass lesion. The ventricles are normal in size. The orbits are norm al. There is mucosal thickening in the paranasal sinuses. The mastoid air cells are normal. IMPRESSION: 1. Extensive nonspecific cerebral white matter disease, which likely represents chronic small vessel ischemic disease, worsened from 04/28/2015. Reviewed, dictated and finalized at location A. EL SCOOP OPERATOR
--- NOTE | ~2022-07-06 | XR_ITS ---
EXAMINATION: XR abdomen NG/feed tube rechec DATE: 07/09/2022 20:33 INDICATION: Nasogastric tube position check TECHNIQUE: A supine view of the abdomen and lower chest was obtained for evaluation of feeding tube placement. COMPARISON: 07/08/2022 FINDINGS: No significant change in position of the nasogastric tube which extends through the stomach and into the duodenum with distal tip at the junction of the second and third portion of the duodenum. No dila yennifer loops of gas-filled bowel to suggest obstruction. Lung bases are clear. Heart size is normal. Sev ere lumbar spondylosis with approximately 0.5 cm right lateral listhesis of L3 with respect to both L 2 and L4. IMPRESSION: 1. Nasogastric tube extends through the stomach with distal tip at the junction of the second and thi rd portion of the duodenum. Reviewed, dictated and finalized at location A. ER MANAGEMENT ASSISTANT IMPRESSION: 1. Nasogastric tube extends through the stomach with distal tip at the junction of the second and third portion of the duodenum.
--- NOTE | ~2022-07-06 | US_ITS ---
EXAMINATION: US renal BI DATE: 07/07/2022 15:08 INDICATION: Acute kidney injury TECHNIQUE: Multiple grayscale and Doppler ultrasound images of the kidneys were obtained. COMPARISON: 10/29/2017 FINDINGS: The right kidney measures 8.1 x 4.1 x 5 cm. The left kidney measures 8.5 x 3.6 x 4.1 cm. Th e kidneys demonstrate normal parenchymal echogenicity. There is no hydronephrosis. The bladder is dec ompressed by Matt catheter. IMPRESSION: 1. Atrophy of the kidneys without hydronephrosis. Reviewed, dictated and finalized at location A. SECURITIES
--- NOTE | ~2022-07-06 | XR_ITS ---
EXAMINATION: XR abdomen NG/feed tube insert DATE: 07/08/2022 07:04 INDICATION: Nasogastric tube placement. TECHNIQUE: An upright view of the abdomen was obtained. COMPARISON: CT abdomen and pelvis 12/25/2021 FINDINGS: The lower abdomen is excluded. There are no dilated loops of bowel. The nasogastric tube ti p extends into the stomach below the diaphragm. The tip remains above the diaphragm in a hiatal herni a. IMPRESSION: 1. The nasogastric tube courses into the stomach in the abdomen, but the tip returns to the lower [address] st and sits in the hiatal hernia. Reviewed, dictated and finalized at location A. NT TRAINER IMPRESSION: 1. The nasogastric tube courses into the stomach in the abdomen, but the tip re turns to the lower chest and sits in the hiatal hernia.
--- NOTE | ~2022-07-06 | XR_ITS ---
EXAMINATION: XR chest 1V portable INDICATION: Shortness of breath TECHNIQUE: Portable AP chest at 1455 hours COMPARISON: 02/19/2022 FINDINGS: The lungs are free of acute opacities. No pleural effusion or pneumothorax. The cardiomedia stinal silhouette is normal. IMPRESSION: 1. No acute cardiopulmonary abnormality. Reviewed, dictated and finalized at location A. TEACHER
--- NOTE | ~2022-07-06 | US_ITS ---
EXAMINATION: US arterial ankle brachial ind DATE: 07/07/2022 11:33 INDICATION: Peripheral arterial disease. TECHNIQUE: Segmental pressures and plethysmographic and Doppler waveforms of the brachial and lower e xtremity arteries were obtained. COMPARISON: None. FINDINGS: Right and left brachial artery pressures of 84 mm Hg and 51 mm Hg, respectively, are discordant (norm al difference <= 30 mmHg). The right ankle-brachial index (YANETH) could not be measured due to inability to cuff occlude the arter ies (normal >= 0.9-1.0). The right great toe-brachial index (TBI) is 0.54 (normal >= 0.65). Arterial Doppler waveforms are biphasic at the ankle. The left YANETH could not be measured due to inability to cuff occlude the arteries. The left TBI is 1.6 8. Arterial Doppler waveforms are biphasic at the ankle. IMPRESSION: 1. Decreased right TBI, consistent with right-sided arterial occlusive disease. 2. Nondiagnostic ABIs. Normal left TBI. 3. Relatively low left brachial artery pressure suspicious for arterial occlusive disease in the left subclavian artery. Reviewed, dictated and finalized at location A. REPORT CLERK IMPRESSION: 1. Decreased right TBI, consistent with right-sided arterial occlusive disease. 2. Nondiagnostic ABIs. Normal left TBI. 3. Relatively low left brachial artery pressure suspicious for arterial occlusi ve disease in the left subclavian artery.
--- NOTE | ~2022-07-06 | US_ITS ---
EXAMINATION: US venous doppler [facility] DATE: 07/06/2022 19:33 INDICATION: Edema, cyanosis . TECHNIQUE: Grayscale images without and with compression and Doppler images of the bilateral lower ex tremity veins were obtained. COMPARISON: None FINDINGS: Peroneal veins poorly visualized. The right common femoral vein, profunda (deep) femoral vein, femora l vein, popliteal vein, posterior tibial veins, gastrocnemius vein, and greater saphenous vein are pa tent. Peroneal veins poorly visualized. The left common femoral vein, profunda femoral vein, femoral vein, popliteal vein, posterior tibial veins, gastrocnemius vein, and greater saphenous vein are patent. IMPRESSION: 1. Patent bilateral lower extremity veins. No evidence of deep venous thrombosis. 2. Poor visualization of the bilateral peroneal veins Reviewed, dictated and finalized at location K. RER [employer]ED [employer] BOARDS IMPRESSION: 1. Patent bilateral lower extremity veins. No evidence of deep venous thrombos is. 2. Poor visualization of the bilateral peroneal veins
--- NOTE | ~2022-07-06 | CT_ITS ---
EXAMINATION: CT brain wo con DATE: 07/07/2022 02:32 INDICATION: Altered mental status. TECHNIQUE: Computed tomography (CT) of the head was performed without intravenous contrast. The mA wa s adjusted according to patient size. Iterative reconstruction technique was employed. The dose-lengt h product was 681.00 mGy-cm. COMPARISON: Head CT 02/20/2022 FINDINGS: There is diffuse brain volume loss. There are scattered areas of low attenuation in the cer ebral white matter. There is no intracranial hemorrhage, acute infarction, or abnormal intracranial m ass lesion. The ventricles are normal in size from the degree of diffuse brain volume loss. The orbit s are normal. There is mild mucosal thickening in the ethmoid sinuses. The mastoid air cells are norm al. IMPRESSION: 1. Stable extensive nonspecific cerebral white matter disease, which likely represents chronic small vessel ischemic disease. Reviewed, dictated and finalized at location A. IC HEALTH NURSE IMPRESSION: 1. Stable extensive nonspecific cerebral white matter disease, which likely rep resents chronic small vessel ischemic disease.
[2022-07-06 14:43] LABS: Glucose Point of Care 70 mg/dl (65-105)
[2022-07-06 14:46] LABS: Glucose Point of Care 103 mg/dl (65-105)
[2022-07-06 14:55] LABS: Fractional Inspired Oxygen 100 %; HCO3 VBG 13.7 mEq/l (24.0-30.0); PO2 VBG 48.8 mmHg (35.0-45.0); pH VBG 7.265 (7.300-7.400)
[2022-07-06 14:58] LABS: Device NON-REBREATHER MASK; PCO2 VBG 30.8 mmHg (42.0-48.0)
--- NOTE | 2022-07-06 15:04 | ECG_ITS ---
Measurements Intervals [place] Rate: 88 P: 63 VT: 157 QRS: -15 QRSD: 89 T: 71 QT: 357 QTc: 433 Interpretive Statements SINUS RHYTHM COMPARED TO ECG 02/19/2022 15:53:52 NO SIGNIFICANT CHANGES Electronically Signed On 07-06-2022 16:39:13 MANAGER MANAGING by Jaiden Rossi M.D.
[2022-07-06 15:05] LABS: Basophils Absolute Auto 0.1 K/mm3 (0.0-0.1); Basophils Percent Auto 0.4 % (0.2-1.2); Eosinophils Absolute Auto 0.1 K/mm3 (0-0.3); Eosinophils Percent Auto 0.8 % (0-4.4); Hematocrit 50.4 % (37.0-47.0); Immature Granulocyte Absolute 0.09 K/mm3 (0.00-0.031); Immature Granulocyte Percent A 0.5 % (0-0.5); Lymphocytes Absolute Auto 1.56 K/mm3 (0.9-3.2); Lymphocytes Percent Auto 8.6 % (18.3-44.2); Mean Corpuscular HGB Conc 29.8 g/dl (32-36); Mean Corpuscular Hemoglobin 31.2 pg (26-34); Mean Corpuscular Volume 104.8 fl (80-100); Mean Platelet Volume 11.5 fl (7.4-10.4); Monocytes Absolute Auto 1.1 K/mm3 (0.1-0.6); Monocytes Percent Auto 6.1 % (2.6-8.5); Neutrophils Absolute Auto 15.2 K/mm3 (1.3-6.7); Neutrophils Percent Auto 83.6 % (45.5-73.1); Platelet Count Result 406 k/mm3 (150-375); Red Blood Count 4.81 M/mm3 (4.2-5.4); Red Cell Distribution Width 14.5 % (11.5-14.5); White Blood Count 18.2 K/mm3 (4.5-10.0)
--- NOTE | 2022-07-06 15:12 | PC.NURSE ---
Pulse ox obtained from patients ear, removed NRB from pt and pt is maintaining O2 of 100% on room air
[2022-07-06 15:16] LABS: Lactic Acid Reflex 3.4 mmol/L (0.7-2.0)
[2022-07-06 15:18] LABS: INR 1.2; Prothrombin Time 14.7 Seconds (11.1-14.7)
[2022-07-06 15:19] LABS: Partial Thromboplastin Time 27.9 SECONDS (22.3-36.8)
[2022-07-06 15:31] LABS: Hypochromasia 1+ (NORMAL); Platelet Estimate Increased (Adequate); Schistocytes None Seen (NORMAL)
[2022-07-06 15:39] LABS: Influenza A QL RT-PCR Negative (Negative); Influenza B QL RT-PCR Negative (Negative); RSV RNA, RT-PCR Positive (Negative); SARS-CoV-2 RNA PCR Negative
[2022-07-06] MEDS: SODIUM CHLORIDE 0.9% IV 2,400 ML/1,000 ML BAG 999 ML IV CONT ×3 (15:48→18:50)
[2022-07-06 16:06] LABS: Alanine Aminotransferase 22 U/L (6-35); Alkaline Phosphatase 96 U/L (38-126); Anion Gap 14 mmol/L (8-16); Aspartate Amino Transferase 53 U/L (14-36); Bilirubin,Total 0.5 mg/dL (0.2-1.3); Calcium 8.4 mg/dL (8.4-10.2); Carbon Dioxide 15 mmol/L (22-30); Chloride 127 mmol/L (98-107); Estimated CRCL calculation 7 ml/min; Estimated Glomerular Filt Rate 6; Glucose 146 mg/dL (65-110); Sodium 156 mmol/L (137-145); Troponin I 0.014 ng/mL (0.000-0.034)
[2022-07-06 16:10] LABS: Appearance Urine Cloudy (Clear); Blood Urine Negative (Negative); Color Urine Yellow (Yellow); Glucose Urine UA Negative (Negative); Ketones Urine Negative (Negative); Protein Urine 2+ mg/dL (Negative)
[2022-07-06 16:11] LABS: Add Urine Microscopic? YES; Bilirubin Urine Negative (Negative); Leukocyte Esterase Ur Trace LEU/UL (Negative); Nitrate Urine Negative (Negative); Urobilinogen Urine 0.2 mg/dL (<2.0)
[2022-07-06 16:13] LABS: Bacteria Urine 4+ /hpf; Hyaline Casts Urine 20-29 /lpf; Mucus Urine Heavy /lpf; RBC Urine 0-2 /hpf (0-2); Squamous Epithelial Cell Urine Many /hpf (Few); WBC Urine 0-3 /hpf
[2022-07-06 16:35] LABS: Blood Urea Nitrogen 129 mg/dL (7-17)
--- NOTE | 2022-07-06 16:47 | ED.GENADULT ---
HPI - General Adult General Chief complaint: Altered Mental Status Stated complaint: UNRESPONSIVE Time Seen by Provider: 07/06/22 14:29 History of Present Illness HPI narrative: Patient is a 77-year-old female who presents ER with unresponsiveness from custodial. Patient hardly arousable to sternal rub for EMS. Here she wakes up very quickly to sternal rub. She has mottling of all extremities. She is unable to answer any questions. Related Data Home Medications Medication Instructions Recorded Confirmed Acetaminophen Pain Relief 650 tablet PO Q4-6H PRN Fever Or 02/19/22 02/19/22 Pain Glucagon (HCl) Emergency Kit 1 unit IM DIRECTED PRN 02/19/22 02/19/22 Hypoglycemia diclofenac sodium 75 mg 75 mg PO BID 02/19/22 02/19/22 tablet,delayed release donepezil 10 mg tablet 10 mg PO HS 02/19/22 02/19/22 furosemide 40 mg tablet (Lasix) 40 mg PO DAILY 02/19/22 02/19/22 hydrochlorothiazide 25 mg PO DAILY 02/19/22 02/19/22 lisinopril 2.5 mg tablet 2.5 mg PO DAILY 02/19/22 02/19/22 loratadine 10 mg tablet 10 mg PO DAILY 02/19/22 02/19/22 memantine 28 caplet PO DAILY 02/19/22 02/20/22 cholecalciferol (vitamin D3) 125 125 mcg PO DAILY 02/20/22 02/20/22 mcg (5,000 unit) capsule metformin 500 mg tablet,extended 500 mg PO DAILY 02/20/22 02/20/22 release 24 hr omeprazole 20 mg capsule,delayed 20 mg PO DAILY 02/20/22 02/20/22 release polyethylene glycol 3350 17 17 g PO DAILY 02/20/22 02/20/22 gram/dose oral powder (Miralax) potassium chloride 10 mEq 10 meq PO DAILY 02/20/22 02/20/22 tablet,extended release senna-docusate sodium tablet 1 tablet PO BID 02/20/22 02/20/22 Allergies Allergy/AdvReac Type Severity Reaction Status Date / Time amoxicillin Allergy Unknown Unknown Verified 02/19/22 15:36 codeine Allergy Unknown Unknown Verified 02/19/22 15:36 Sulfa (Sulfonamide Allergy Unknown Unknown Verified 02/19/22 15:36 Antibiotics) hydrocodone AdvReac Intermediate VOMITING Verified 07/06/22 14:34 morphine AdvReac Intermediate VOMITING Verified 07/06/22 14:34 Review of Systems Review of Systems: ROS unobtainable: Yes unobtainable due to medical condition and unobtainable due to mental status [facility] Past Medical History Medical History Chronic kidney disease Congestive heart failure Dementia due to Alzheimer's disease Hyperlipidemia Hypertension Osteoarthritis Surgical History Surgical History History of benign breast biopsy Left. History of bilateral knee arthroplasty History of section X3 History of cholecystectomy History of excision of epidermal inclusion cyst Left neck. History of laparoscopy With adhesiolysis. History of toe surgery Right great toe joint replacement. Family History Family History Other Acute myocardial infarction Cancer Social History Social History (Updated 07/06/22 @ 18:07 by Clementina Romano PA-C) Social History: Resident at [facility]. No alcohol, tobacco, or illicit substance use. Her daughter, Carlene Kidd, is her healthcare power of attorney general. Code status: Do not resuscitate. Spiritual care concerns: No Exam Narrative: GENERAL: Chronically ill-appearing, well-nourished, and in distress. HEAD: Normocephalic, atraumatic. EYES: PERRL and EOMI. ENT: Dry mucous membranes CHEST: Clear to auscultation. No respiratory distress. HEART: Regular rate and rhythm. Weak distal pulses with cyanotic hands/feet. ABDOMEN: Soft, nontender, nondistended. EXTREMITIES: Normal range of motion. No edema. SKIN: Cool, dry, no rash. NEURO: Alert and oriented x1. Course Course Emergency Course: Patient responding well to fluids. Will not treat hyperkalemia outside of fluids at this time as patient appears quite dry. Should be started on antibiotic coverage for UTI. Nursing h
--- NOTE | 2022-07-06 17:45 | PM.IMHP ---
H&P: HPI History of Present Illness Date/Time: 07/06/22 17:45 Chief Complaint: Minimally responsive and hypoxic. Narrative: This is a 76-year-old female with history of dementia, diabetes, and hypertension who presented to the emergency department via EMS from [facility] for evaluation after she was found unresponsive and hypoxic. She will rarely open her eyes and withdrawals to noxious stimuli though she does not answer any questions (not unusual for the patient as I had similar interactions with her when involved with her care previously). As such, the following history is obtained via a review of her electronic medical records as well as discussions with her daughter Ale who is at bedside. Ale and her family have had flu recently and they have not seen the patient as frequently the last couple of weeks. She did see the patient yesterday at which time she was much less interactive than usual and she seemed to be more tired and sleepy. She reportedly had not been eating much the last couple of days and yesterday she only ate some ice cream and Jell-O at the half-way. I am not certain how she was this morning but this afternoon when they went to check on her she was unresponsive in bed and she was reportedly cyanotic and mottled. On EMS arrival her SpO2 was reportedly 50% on room air and she was placed on 15 liter non-rebreather mask. Workup in the ED was significant for leukocytosis, acute on chronic kidney injury with significant uremia, hypernatremia, hypercalcemia, and lactic acidosis. Urinalysis was positive for trace leukocyte esterase, many squamous cells, 4+ bacteria, and multiple hyaline casts. No acute cardiopulmonary abnormality was noted on chest x-ray. She tested positive for RSV but according to her daughter she has not had any reported symptoms of such. She is being admitted to the hospital for further workup of worsening renal function and empiric antibiotics for suspected underlying infection. Daughter reiterates that she wants the patient to be comfortable and she is a DNR/DNI. They would not want a central line or vasopressors either. Review of Systems Review of Systems: Unable to obtain given current clinical condition as detailed above. [facility] Past Medical History Medical History Chronic kidney disease Congestive heart failure Dementia due to Alzheimer's disease Hyperlipidemia Hypertension Osteoarthritis Surgical History Surgical History History of benign breast biopsy Left. History of bilateral knee arthroplasty History of section X3 History of cholecystectomy History of excision of epidermal inclusion cyst Left neck. History of laparoscopy With adhesiolysis. History of toe surgery Right great toe joint replacement. Family History Family History Other Acute myocardial infarction Cancer Social History Social History (Updated 07/07/22 @ 01:15 by Clementina Romano PA-C) Social History: Resident at [facility]. No alcohol, tobacco, or illicit substance use. Healthcare power of patent attorney: Ale Kidd, daughter. Code status: DNR/DNI. No central line or vasopressors. Spiritual care concerns: No Meds Home Medications and Allergies Home Medications Medication Instructions Recorded Confirmed Type Acetaminophen Pain Relief 650 tablet PO Q4-6H PRN Fever Or 02/19/22 07/07/22 History Pain Glucagon (HCl) Emergency Kit 1 unit IM DIRECTED PRN 02/19/22 07/07/22 History Hypoglycemia diclofenac sodium 75 mg 75 mg PO BID 02/19/22 07/07/22 History tablet,delayed release donepezil 10 mg tablet (Aricept) 10 mg PO HS 02/19/22 07/07/22 History furosemide 40 mg tablet (Lasix) 40 mg PO DAILY 02/19/22 07/07/22 History hydrochlorothiazide 25 mg PO DAILY 02/19/22 07/07/22 History lisinopril 2.5
[2022-07-06 18:01] LABS: Reflex Lactic Acid Yes or No Add Lactic
[2022-07-06] MEDS: SODIUM CHLORIDE 0.9% IV 1,000 ML 125 ML IV CONT (18:50)
[2022-07-06 18:56] LABS: Lactic Acid Reflex 2.2 mmol/L (0.7-2.0)
[2022-07-06 19:04] LABS: Anion Gap 17 mmol/L (8-16); Calcium 8.6 mg/dL (8.4-10.2); Carbon Dioxide 13 mmol/L (22-30); Chloride 123 mmol/L (98-107); Estimated CRCL calculation 7 ml/min; Estimated Glomerular Filt Rate 7; Glucose 156 mg/dL (65-110); Potassium 5.6 mmol/L (3.4-5.0); Sodium 153 mmol/L (137-145)
[2022-07-06 20:54] LABS: Lactic Acid 2.1 mmol/L (0.7-2.0)
[2022-07-06 21:09] LABS: Blood Urea Nitrogen 132 mg/dL (7-17)
--- NOTE | 2022-07-06 23:20 | ADMGEN ---
This patient, Rody Ardon, was admitted to IMU Room 203-01. Patient/family oriented to hospital policies and general routines including ID bracelet, bed and alarms, visiting hours, pain management, procedures, bathroom and other care routines, personal items, smoking policy, room service/diet, and visiting hours. Information on how to activate the Rapid Response Team has been discussed. Patient/Family are encouraged to report perceived risks to care and to ask questions if they do not understand what they are told or what they should do.
[2022-07-07] VITALS (12 sets, daily range): BP systolic 91–103; BP diastolic 56–86; PULSE 87–180; RESP 14–28; TEMP 36.4–36.7; O2SAT 93–96
--- NOTE | 2022-07-07 01:27 | ECHO_ITS ---
Patient Info Name: Rody Ardon Age: 77 years : 1945 Gender: Female Ht: 67 in Wt: 180 lbs BSA: 1.98 m2 HR: 105 bpm BP: 101 / 56 mmHg Technical Quality: Fair Exam Date: 07/07/2022 8:05 AM Exam Location: [facility] Pulmonary Patient Status: Inpatient Admit Date: 07/06/2022 Staff Ordering Physician: Clementina Romano PA-C Tape Editor: Joy Owens RDCS Attending Provider: Memo Cedeno MD Referring Physician: Rosalina COBOS; Exam Type: CA echo doppler color flow Study Info Indications - hypoxia, cyanosis Complete two-dimensional, color flow and Doppler transthoracic echocardiogram is performed. Summary 1. Complete two-dimensional, color flow and Doppler transthoracic echocardiogram is performed. 2. Left ventricular chamber dimension is normal. 3. Left ventricular systolic function is normal, estimated at 65-70%. 4. The left ventricular diastolic function is grade I diastolic dysfunction. 5. E/e' 15 is elevated. 6. Right ventricular systolic function is reduced based on abnormal TAPSE 1.2 cm. 7. There is mild aortic valve sclerosis. 8. The mitral valve has moderately calcified annulus. 9. No pulmonary hypertension, estimated pulmonary arterial systolic pressure is 28 mmHg. Left Ventricle E/e' 15 is elevated. Left ventricular chamber dimension is normal. Left ventricular systolic function is normal, estimated at 65-70%. The left ventricular diastolic function is grade I diastolic dysfunction. Right Ventricle Right ventricular systolic function is reduced based on abnormal TAPSE 1.2 cm. Right ventricular chamber dimension is not well visualized. Left Atria Left atrial chamber dimension is normal. Right Atria Right atrial chamber dimension is normal. Aortic Valve The aortic valve is trileaflet. There is mild aortic valve sclerosis. There is no aortic valve stenosis. There is no aortic valve regurgitation. Pulmonic Valve There is no pulmonic regurgitation. Mitral Valve The mitral valve has moderately calcified annulus. There is no mitral valve stenosis. There is no mitral valve regurgitation. Tricuspid Valve There is no tricuspid valve regurgitation. No pulmonary hypertension, estimated pulmonary arterial systolic pressure is 28 mmHg. Pericardium/Pleural There is no pericardial effusion. Inferior Vena Cava Normal inferior vena cava with >50% collapse upon inspiration consistent with normal right atrial pressure, 5 mmHg. Aorta The aortic root size at the sinus of Valsalva is normal. Left Ventricular Outflow Tract Name Value Normal LVOT 2D LVOT Diameter 2.0 cm Pulmonic Valve Name Value Normal RVOT Doppler RVOT Peak Gradient 3 mmHg PV Doppler PV Peak Gradient 4 mmHg Mitral Valve Name
[2022-07-07] MEDS: SODIUM CHLORIDE 0.9% IV 1,000 ML 125 ML IV CONT ×2 (01:40→10:31)
[2022-07-07] MEDS: SODIUM BICARBONATE 8.4% 50 MEQ/50 ML SYRINGE IV PUSH (01:45)
[2022-07-07 06:05] LABS: Alanine Aminotransferase 22 U/L (6-35); Albumin Level 3.3 g/dL (3.5-5.1); Alkaline Phosphatase 81 U/L (38-126); Anion Gap 19 mmol/L (8-16); Aspartate Amino Transferase 100 U/L (14-36); Bilirubin,Total 0.7 mg/dL (0.2-1.3); CRP 6.1 mg/dL (<1.0); Calcium 8.2 mg/dL (8.4-10.2); Carbon Dioxide 7 mmol/L (22-30); Chloride 127 mmol/L (98-107); Estimated CRCL calculation 8 ml/min; Estimated Glomerular Filt Rate 7; Glucose 158 mg/dL (65-110); Potassium 5.3 mmol/L (3.4-5.0); Sodium 153 mmol/L (137-145)
[2022-07-07 06:57] LABS: Hemoglobin 12.3 g/dL (12.0-15.0); Red Blood Count 3.97 M/mm3 (4.2-5.4); White Blood Count 11.8 K/mm3 (4.5-10.0)
[2022-07-07 06:58] LABS: Mean Corpuscular HGB Conc 30.8 g/dl (32-36); Mean Corpuscular Volume 100.8 fl (80-100); Mean Platelet Volume 11.6 fl (7.4-10.4); Platelet Count Result 296 k/mm3 (150-375); Red Cell Distribution Width 14.2 % (11.5-14.5)
[2022-07-07 07:41] LABS: Procalcitonin 2.4 ng/mL
[2022-07-07 07:56] LABS: Thyroid Stimulating Hormone Reflex 0.865 uIU/mL (0.465-4.68)
[2022-07-07 08:13] LABS: Hemoglobin A1C 5.9 % (<5.7)
[2022-07-07 09:14] LABS: Glucose Point of Care 79 mg/dl (65-105)
[2022-07-07 10:13] LABS: Blood Urea Nitrogen > 120 mg/dL (7-17)
[2022-07-07 12:06] LABS: Glucose Point of Care 107 mg/dl (65-105)
--- NOTE | 2022-07-07 14:36 | PM.IMPN ---
Progress Note: A&P Assessment and Plan (1) Sepsis: Code(s): A41.9 - Sepsis, unspecified organism Status: Acute Assessment and Plan: Severe sepsis with ANABELL lactic acidosis encephalopathy Unclear source RSV positive chest x-rays negative UA is not suggestive of infection Add vancomycin continue ceftriaxone (2) RSV infection: Code(s): B33.8 - Other specified viral diseases Status: Acute Assessment and Plan: Supportive care. (3) Abnormal urinalysis: Code(s): R82.90 - Unspecified abnormal findings in urine Status: Acute Assessment and Plan: Urine looks contaminated however given sepsis picture she has been started on empiric antibiotics, pending culture. (4) Qmyds-ob-djjgsbh kidney injury: Code(s): N17.9 - Acute kidney failure, unspecified; N18.9 - Chronic kidney disease, unspecified Status: Acute Assessment and Plan: Likely severe dehydration related. Mildly cast in the UA. Otherwise bland. IV resuscitation is also severe metabolic acidosis will change fluid to bicarb drip Seems urine output has improved a bit since initiation of IV fluids Renal ultrasound pending Matt in place Nephrology consult (5) Hyperkalemia: Code(s): E87.5 - Hyperkalemia Status: Acute Assessment and Plan: Potassium has improved to 5.6 with IV fluids which will be continued. One amp bicarb ordered given concomitant acidosis. (6) Metabolic acidosis: Code(s): E87.20 - Acidosis, unspecified Status: Acute Assessment and Plan: Due to a combination of renal failure, lactic acidosis, and non gap hyperchloremic acidosis. Will start bicarb drip (7) Metabolic encephalopathy: Code(s): G93.41 - Metabolic encephalopathy Status: Acute Assessment and Plan: Due to a combination of worsening renal failure with significant uremia, electrolyte derangements, and infection. Brain CT negative (8) Acute respiratory failure with hypoxia: Code(s): J96.01 - Acute respiratory failure with hypoxia Status: Acute Assessment and Plan: Patient was reportedly hypoxic with an SpO2 in the 50s on EMS arrival however that has not been appreciated here. I suspect that she is so clamped down and cyanotic that they were not getting an accurate reading. SpO2 is currently in the high 90s on room air. Continue to monitor respiratory status still critically ill (9) Hyperglycemia: Code(s): R73.9 - Hyperglycemia, unspecified Status: Acute Assessment and Plan: Metformin on hold (no documented history of diabetes). No ketones noted in urine. Check A1c. Dextrose drip since NPO Plan Hyponatremia change fluid to D5 water with 100 of sodium bicarb DVT prophylaxis heparin subQ Subjective Date/time seen: 07/07/22 14:36 Interval history: This is a 76-year-old female with history of dementia, diabetes, and hypertension who presented to the emergency department via EMS from [facility] for evaluation after she was found unresponsive and hypoxic. She will rarely open her eyes and withdrawals to noxious stimuli though she does not answer any questions (not unusual for the patient as I had similar interactions with her when involved with her care previously). As such, the following history is obtained via a review of her electronic medical records as well as discussions with her daughter Ale who is at bedside. Ale and her family have had flu recently and they have not seen the patient as frequently the last couple of weeks. She did see the patient yesterday at which time she was much less interactive than usual and she seemed to be more tired and sleepy. She reportedly had not been eating much the last couple of days and yesterday she only ate some ice cream and Jell-O at the intermediate. I am not certain how she was this morning but this afternoon when they went to check on her she was unresponsive
[2022-07-07] MEDS: SODIUM BICARBONATE 8.4% 100 MEQ in DEXTROSE 5% 1,000 ML 1,000 ML IV CONT (15:23)
--- NOTE | 2022-07-07 16:20 | P.CONNP_ITS ---
Assessment and Plan Assessment and plan (1) ANABELL (acute kidney injury): Code(s): N17.9 - Acute kidney failure, unspecified Status: Acute Assessment and Plan: * multifactorial etiology: * sepsis/infection * prerenal factors * relative hypotension * medications -- on DAVIAN-I, HCTZ, lasix, and NSAIDs prior to admission * agree with IVF resuscitation in the form of bicarb fluids * could check urine electrolytes/eosinophils but doubt would change release manager now since renal function improving * follow-up on renal ultrasound * continue current therapy (2) Stage 3b chronic kidney disease: Code(s): N18.32 - Chronic kidney disease, stage 3b Status: Chronic Assessment and Plan: * baseline creatinine seems to run ~ 1.5 - 1.9mg/dl * presumably due to HTN, DM, CHF, vascular disease and age (3) Hypernatremia: Code(s): E87.0 - Hyperosmolality and hypernatremia Status: Acute Assessment and Plan: * likely due to free water deficit from poor oral fluid intake * this is likely worsened by IVF fluid resuscitation efforts * current IVFs should provide some free water * if worsens, may need change IVFs versus place NG/doboff for free water flushes (4) Sepsis: Code(s): A41.9 - Sepsis, unspecified organism Status: Acute Assessment and Plan: * source unclear at this time * as noted by leukocytosis, ANABELL, lactic acidosis and tachycardia on admission * blood and urine cultures pending * on empiric antibiotics (5) Metabolic acidosis: Code(s): E87.20 - Acidosis, unspecified Status: Acute Assessment and Plan: * due to combo of ANABELL, lactic acidosis, and possible metformin use * agree with changing IVFs with bicarbonate to compensate * follow repeat CO2 levels (6) Metabolic encephalopathy: Code(s): G93.41 - Metabolic encephalopathy Status: Acute Assessment and Plan: * likely due to several issues: * ANABELL * uremia * electrolytes derangements * infection/sepsis * follow mentation with improvement of above issues (7) RSV infection: Code(s): B33.8 - Other specified viral diseases Status: Acute Assessment and Plan: * supportive care for now * may have been possible trigger for sepsis Discussed case with Dr Cedeno in detail including interventions to date to optimize clinical status. Will continue to follow. History of Present Illness Reason for Consult Consult date: 07/07/22 Reason for consult: acute renal failure (on chronic kidney disease) Chief Complaint Chief complaint: Sepsis/RSV/UTI/Hyperkalemia/Natremia/Chloremia History of Present Illness Narrative: All the information I have obtained is from review of the electronic medical record as well as discussion with the physician/nurses involved in her care as the patient is unable to provide me with any history due to her current clinical status. The patient is a 76-year-old female with an extensive past medical history as outlined below who presented to [facility] Emergency room via EMS from her nursing facility for further evaluation of hypoxia and unresponsiveness. Her baseline mental status is somewhat poor in general but apparently seems to have worsened in the last couple of days. Her family usually visits her quite frequently but since they were all sick they have not done so recently. However, when they saw her the day before admission, she seemed to be less interactive than usual in more fatigue and sleepy. Unique
--- NOTE | 2022-07-07 16:20 | PM.CNNEP ---
Assessment and Plan Assessment and plan (1) ANABELL (acute kidney injury): Code(s): N17.9 - Acute kidney failure, unspecified Status: Acute Assessment and Plan: multifactorial etiology: sepsis/infection prerenal factors relative hypotension medications -- on DAVIAN-I, HCTZ, lasix, and NSAIDs prior to admission agree with IVF resuscitation in the form of bicarb fluids could check urine electrolytes/eosinophils but doubt would change lead now since renal function improving follow-up on renal ultrasound continue current therapy (2) Stage 3b chronic kidney disease: Code(s): N18.32 - Chronic kidney disease, stage 3b Status: Chronic Assessment and Plan: baseline creatinine seems to run ~ 1.5 - 1.9mg/dl presumably due to HTN, DM, CHF, vascular disease and age (3) Hypernatremia: Code(s): E87.0 - Hyperosmolality and hypernatremia Status: Acute Assessment and Plan: likely due to free water deficit from poor oral fluid intake this is likely worsened by IVF fluid resuscitation efforts current IVFs should provide some free water if worsens, may need change IVFs versus place NG/doboff for free water flushes (4) Sepsis: Code(s): A41.9 - Sepsis, unspecified organism Status: Acute Assessment and Plan: source unclear at this time as noted by leukocytosis, ANABELL, lactic acidosis and tachycardia on admission blood and urine cultures pending on empiric antibiotics (5) Metabolic acidosis: Code(s): E87.20 - Acidosis, unspecified Status: Acute Assessment and Plan: due to combo of ANABELL, lactic acidosis, and possible metformin use agree with changing IVFs with bicarbonate to compensate follow repeat CO2 levels (6) Metabolic encephalopathy: Code(s): G93.41 - Metabolic encephalopathy Status: Acute Assessment and Plan: likely due to several issues: ANABELL uremia electrolytes derangements infection/sepsis follow mentation with improvement of above issues (7) RSV infection: Code(s): B33.8 - Other specified viral diseases Status: Acute Assessment and Plan: supportive care for now may have been possible trigger for sepsis Discussed case with Dr Cedeno in detail including interventions to date to optimize clinical status. Will continue to follow. History of Present Illness Reason for Consult Consult date: 07/07/22 Reason for consult: acute renal failure (on chronic kidney disease) Chief Complaint Chief complaint: Sepsis/RSV/UTI/Hyperkalemia/Natremia/Chloremia History of Present Illness Narrative: All the information I have obtained is from review of the electronic medical record as well as discussion with the physician/nurses involved in her care as the patient is unable to provide me with any history due to her current clinical status. The patient is a 76-year-old female with an extensive past medical history as outlined below who presented to [facility] Emergency room via EMS from her nursing facility for further evaluation of hypoxia and unresponsiveness. Her baseline mental status is somewhat poor in general but apparently seems to have worsened in the last couple of days. Her family usually visits her quite frequently but since they were all sick they have not done so recently. However, when they saw her the day before admission, she seemed to be less interactive than usual in more fatigue and sleepy. Furthermore, she has not been eating and drinking in the last few days as well. Apparently, on the day of [place], later in the afternoon, the nursing staff found her unresponsive. She was apparently cyanotic and mottled and it is unclear how she was earlier in the day. EMS was called and she was apparently hypoxic at 50% on room air and required a 15 L non-rebreather to get her oxygen saturations up prior to her transfer to the ER for further assessment
[2022-07-07 16:45] LABS: Glucose Point of Care 93 mg/dl (65-105)
[2022-07-07 18:28] LABS: IFOB Positive Control Positive; Immunochemical Fecal Occult Bl Positive (N)
[2022-07-07 19:19] LABS: Hematocrit 42.2 % (37.0-47.0); Hemoglobin 12.9 g/dL (12.0-15.0); Mean Corpuscular HGB Conc 30.6 g/dl (32-36); Mean Corpuscular Hemoglobin 31.7 pg (26-34); Mean Corpuscular Volume 103.7 fl (80-100); Mean Platelet Volume 11.9 fl (7.4-10.4); Platelet Count Result 304 k/mm3 (150-375); Red Blood Count 4.07 M/mm3 (4.2-5.4); Red Cell Distribution Width 14.6 % (11.5-14.5); White Blood Count 13.9 K/mm3 (4.5-10.0)
[2022-07-07 20:24] LABS: Anion Gap 15 mmol/L (8-16); Blood Urea Nitrogen 116 mg/dL (7-17); Calcium 8.8 mg/dL (8.4-10.2); Carbon Dioxide 15 mmol/L (22-30); Chloride 130 mmol/L (98-107); Estimated CRCL calculation 11 ml/min; Estimated Glomerular Filt Rate 10; Glucose 226 mg/dL (65-110); Potassium 4.1 mmol/L (3.4-5.0); Sodium 160 mmol/L (137-145)
[2022-07-07 20:38] LABS: Glucose Point of Care 78 mg/dl (65-105)
[2022-07-07 20:38] LABS: Lactic Acid Reflex 2.1 mmol/L (0.7-2.0)
[2022-07-07] MEDS: PANTOPRAZOLE SODIUM IV 40 MG VIAL IV PUSH (21:19)
[2022-07-07 22:37] LABS: Anion Gap 15 mmol/L (8-16); Blood Urea Nitrogen 117 mg/dL (7-17); Calcium 8.4 mg/dL (8.4-10.2); Carbon Dioxide 11 mmol/L (22-30); Chloride 134 mmol/L (98-107); Estimated CRCL calculation 11 ml/min; Estimated Glomerular Filt Rate 10; Glucose 159 mg/dL (65-110); Sodium 160 mmol/L (137-145)
[2022-07-07 23:19] LABS: Reflex Lactic Acid Yes or No Add Lactic
[2022-07-08] VITALS (12 sets, daily range): BP systolic 91–137; BP diastolic 52–82; PULSE 98–111; RESP 18–22; TEMP 36–36.6; O2SAT 92–100; BMI 28.3
[2022-07-08 00:06] LABS: Lactic Acid 2.6 mmol/L (0.7-2.0)
[2022-07-08 01:57] LABS: Sodium 154 mmol/L (137-145)
[2022-07-08] MEDS: SODIUM BICARBONATE 8.4% 100 MEQ in DEXTROSE 5% 1,000 ML 1,000 ML IV CONT (02:21)
[2022-07-08 03:55] LABS: Hematocrit 37.9 % (37.0-47.0); Hemoglobin 11.8 g/dL (12.0-15.0); Mean Corpuscular HGB Conc 31.1 g/dl (32-36); Mean Corpuscular Hemoglobin 31.1 pg (26-34); Platelet Count Result 298 k/mm3 (150-375); Red Blood Count 3.79 M/mm3 (4.2-5.4); Red Cell Distribution Width 14.6 % (11.5-14.5); White Blood Count 12.5 K/mm3 (4.5-10.0)
[2022-07-08 04:16] LABS: Alanine Aminotransferase 24 U/L (6-35); Albumin Level 3.3 g/dL (3.5-5.1); Alkaline Phosphatase 82 U/L (38-126); Anion Gap 12 mmol/L (8-16); Aspartate Amino Transferase 48 U/L (14-36); Bilirubin,Total 0.4 mg/dL (0.2-1.3); Blood Urea Nitrogen 110 mg/dL (7-17); Calcium 8.7 mg/dL (8.4-10.2); Carbon Dioxide 19 mmol/L (22-30); Chloride 132 mmol/L (98-107); Estimated CRCL calculation 12 ml/min; Estimated Glomerular Filt Rate 11; Glucose 164 mg/dL (65-110); Magnesium 1.8 mg/dL (1.6-2.3); Potassium 3.4 mmol/L (3.4-5.0); Sodium 163 mmol/L (137-145)
[2022-07-08 04:24] LABS: Band Neutrophils Percent 16 % (0-6); Lymphocytes Absolute Manual 2.62 K/mm3 (1.1-4.5); Metamyelocytes Percent 2 %; Neutrophils Absolute Manual 9.62 K/mm3 (1.7-7.2); Neutrophils Percent Manual 61 % (46-73); Platelet Estimate Adequate (Adequate); Total Cells Counted 100
[2022-07-08 04:25] LABS: Burr Cells 1+ (NORMAL); Schistocytes None Seen (NORMAL)
[2022-07-08 08:38] LABS: Glucose Point of Care 164 mg/dl (65-105)
[2022-07-08] MEDS: PANTOPRAZOLE SODIUM IV 40 MG VIAL IV PUSH ×2 (09:41→20:37)
[2022-07-08] MEDS: SODIUM BICARBONATE 8.4% 50 MEQ in DEXTROSE 5% 1,000 ML 1,000 ML 75 MEQ IV CONT (10:35)
[2022-07-08 11:52] LABS: Glucose Point of Care 157 mg/dl (65-105)
[2022-07-08 12:33] LABS: Anion Gap 10 mmol/L (8-16); Blood Urea Nitrogen 98 mg/dL (7-17); Calcium 8.5 mg/dL (8.4-10.2); Carbon Dioxide 20 mmol/L (22-30); Chloride 130 mmol/L (98-107); Estimated CRCL calculation 15 ml/min; Estimated Glomerular Filt Rate 15; Glucose 154 mg/dL (65-110); Potassium 3.2 mmol/L (3.4-5.0); Sodium 160 mmol/L (137-145)
--- NOTE | 2022-07-08 15:24 | PM.PNNEP ---
Progress Note: A&P Assessment and Plan (1) ANABELL (acute kidney injury): Code(s): N17.9 - Acute kidney failure, unspecified Status: Acute Assessment and Plan: improvement noted multifactorial etiology: sepsis/infection prerenal factors relative hypotension medications -- on DAVIAN-I, HCTZ, lasix, and NSAIDs prior to admission renal ultrasound noted follow repeat labs and UOP continue current therapy (2) Stage 3b chronic kidney disease: Code(s): N18.32 - Chronic kidney disease, stage 3b Status: Chronic Assessment and Plan: baseline creatinine seems to run ~ 1.5 - 1.9mg/dl presumably due to HTN, DM, CHF, vascular disease and age (3) Hypernatremia: Code(s): E87.0 - Hyperosmolality and hypernatremia Status: Acute Assessment and Plan: likely due to free water deficit from poor oral fluid intake this is likely worsened by IVF fluid resuscitation efforts current IVFs should provide some free water since NG tube in place, will start free water flushes to compensate (4) Sepsis: Code(s): A41.9 - Sepsis, unspecified organism Status: Acute Assessment and Plan: as noted by leukocytosis, ANABELL, lactic acidosis and tachycardia on admission blood cultures positive for GPC urine culture negative on antibiotics - adjust based on culture data (5) Metabolic acidosis: Code(s): E87.20 - Acidosis, unspecified Status: Acute Assessment and Plan: resolving due to combo of ANABELL, lactic acidosis, and possible metformin use on bicarb fluids -- wean as tolerated follow repeat CO2 levels (6) Metabolic encephalopathy: Code(s): G93.41 - Metabolic encephalopathy Status: Acute Assessment and Plan: likely due to several issues: ANABELL uremia electrolytes derangements infection/sepsis follow mentation with improvement of above issues (7) RSV infection: Code(s): B33.8 - Other specified viral diseases Status: Acute Assessment and Plan: supportive care for now may have been possible trigger for sepsis Will continue to follow. Subjective Date/time seen: 07/08/22 15:24 No real significant change noted with regard to mentation -- remains confused and intermittently mumbles; renal function and acidosis appears to be doing better although hypernatremia persists; IVFs have since been adjusted and NG tube placed earlier this AM. Exam Narrative: General: chronically ill appearing female who is minimally responsive Heart: normal S1 and S2; tachycardic Lungs: coarse breath sounds Abdomen: soft, nontender, nondistended, positive bowel sounds Extremities: no cyanosis or clubbing; no edema Skin: warm and dry Objective Data Vital Signs Vital Signs: Vital Signs Temp Pulse Resp BP Pulse Ox O2 Del Method 07/08/22 14:00 108 H 07/08/22 10:00 103 H 07/08/22 12:00 102 H 07/08/22 08:00 108 H 07/08/22 12:00 Room Air 07/08/22 12:00 97.2 F L 98 18 102/65 98 07/08/22 08:00 Room Air 07/08/22 08:00 96.8 F L 102 H 20 91/52 L 96 07/08/22 06:00 105 H 07/08/22 04:00 97.6 F 111 H 20 137/82 98 07/08/22 04:00 109 H 07/08/22 04:00 Room Air 07/08/22 02:00 111 H 07/08/22 00:00 107 H 07/07/22 22:00 112 H 07/07/22 20:00 111 H 07/08/22 00:00 Room Air 07/07/22 20:00 Room Air 07/08/22 00:00 97.6 F 109 H 20 91/56 L 92 07/07/22 20:00 97.5 F L 111 H 22 H 91/63 L 93 07/07/22 18:00 107 H Intake/Output Intake/Output: Intake & Output 07/05/22 07/06/22 07/07/22 07/08/22 23:59 23:59 23:59 23:59 Intake Total 2450 2565 1350 Output Total 1000 750 Balance 2450 1565 600 Meds/Results Medications: Active Medications Generic Name Dose Route Start Last Admin Trade Name Freq PRN Reason Stop Dose Admin Acetaminophen 650 mg
--- NOTE | 2022-07-08 15:24 | P.PNNP_ITS ---
Progress Note: A&P Assessment and Plan (1) ANABELL (acute kidney injury): Code(s): N17.9 - Acute kidney failure, unspecified Status: Acute Assessment and Plan: * improvement noted * multifactorial etiology: * sepsis/infection * prerenal factors * relative hypotension * medications -- on DAVIAN-I, HCTZ, lasix, and NSAIDs prior to admission * renal ultrasound noted * follow repeat labs and UOP * continue current therapy (2) Stage 3b chronic kidney disease: Code(s): N18.32 - Chronic kidney disease, stage 3b Status: Chronic Assessment and Plan: * baseline creatinine seems to run ~ 1.5 - 1.9mg/dl * presumably due to HTN, DM, CHF, vascular disease and age (3) Hypernatremia: Code(s): E87.0 - Hyperosmolality and hypernatremia Status: Acute Assessment and Plan: * likely due to free water deficit from poor oral fluid intake * this is likely worsened by IVF fluid resuscitation efforts * current IVFs should provide some free water * since NG tube in place, will start free water flushes to compensate (4) Sepsis: Code(s): A41.9 - Sepsis, unspecified organism Status: Acute Assessment and Plan: * as noted by leukocytosis, ANABELL, lactic acidosis and tachycardia on admission * blood cultures positive for GPC * urine culture negative * on antibiotics - adjust based on culture data (5) Metabolic acidosis: Code(s): E87.20 - Acidosis, unspecified Status: Acute Assessment and Plan: * resolving * due to combo of ANABELL, lactic acidosis, and possible metformin use * on bicarb fluids -- wean as tolerated * follow repeat CO2 levels (6) Metabolic encephalopathy: Code(s): G93.41 - Metabolic encephalopathy Status: Acute Assessment and Plan: * likely due to several issues: * ANABELL * uremia * electrolytes derangements * infection/sepsis * follow mentation with improvement of above issues (7) RSV infection: Code(s): B33.8 - Other specified viral diseases Status: Acute Assessment and Plan: * supportive care for now * may have been possible trigger for sepsis Will continue to follow. Subjective Date/time seen: 07/08/22 15:24 No real significant change noted with regard to mentation -- remains confused and intermittently mumbles; renal function and acidosis appears to be doing better although hypernatremia persists; IVFs have since been adjusted and NG tube placed earlier this AM. Exam Narrative: General: chronically ill appearing female who is minimally responsive Heart: normal S1 and S2; tachycardic Lungs: coarse breath sounds Abdomen: soft, nontender, nondistended, positive bowel sounds Extremities: no cyanosis or clubbing; no edema Skin: warm and dry Objective Data Vital Signs Vital Signs: Vital Signs Temp Pulse Resp BP Pulse Ox O2 Del Method 07/08/22 14:00 108 H 07/08/22 10:00 103 H 07/08/22 12:00 102 H 07/08/22 08:00 108 H 07/08/22 12:00 Room Air 07/08/22 12:00 97.2 F L 98 18 102/65 98 07/08/22 08:00 Room Air 07/08/22 08:00 96.8 F L 102 H 20 91/52 L 96 07/08/22 06:00 105 H 07/08/22 04:00 97.6 F 111 H 20 137/82 98 07/08/22 04:00 109 H 07/08/22 0
--- NOTE | 2022-07-08 15:57 | PM.IMPN ---
Progress Note: A&P Assessment and Plan (1) Sepsis: Code(s): A41.9 - Sepsis, unspecified organism Status: Acute Assessment and Plan: Severe sepsis with ANABELL lactic acidosis encephalopathy Unclear source RSV positive chest x-rays negative UA is not suggestive of infection Add vancomycin continue ceftriaxone Gram-positive cocci in blood culture noted. Continue vancomycin and await identification (2) RSV infection: Code(s): B33.8 - Other specified viral diseases Status: Acute Assessment and Plan: Supportive care. (3) Abnormal urinalysis: Code(s): R82.90 - Unspecified abnormal findings in urine Status: Acute Assessment and Plan: Urine looks contaminated however given sepsis picture she has been started on empiric antibiotics, pending culture. (4) Mtegq-bi-bzdsgaf kidney injury: Code(s): N17.9 - Acute kidney failure, unspecified; N18.9 - Chronic kidney disease, unspecified Status: Acute Assessment and Plan: Likely severe dehydration related. Mildly cast in the UA. Otherwise bland. IV resuscitation is also severe metabolic acidosis will change fluid to bicarb drip Seems urine output has improved a bit since initiation of IV fluids Renal ultrasound pending Matt in place Nephrology consult Urine output has improved. Creatinine has continued to improve down to 3. Metabolic acidosis improved as well. Change bicarb drip with 1 amp of bicarb due to ongoing hypernatremia. (5) Hyperkalemia: Code(s): E87.5 - Hyperkalemia Status: Acute Assessment and Plan: Potassium has improved to 5.6 with IV fluids which will be continued. One amp bicarb ordered given concomitant acidosis. (6) Metabolic acidosis: Code(s): E87.20 - Acidosis, unspecified Status: Acute Assessment and Plan: Due to a combination of renal failure, lactic acidosis, and non gap hyperchloremic acidosis. Started on bicarb Change fluid to included D5 water with 1 amp of bicarb this a.m. (7) Metabolic encephalopathy: Code(s): G93.41 - Metabolic encephalopathy Status: Acute Assessment and Plan: Due to a combination of worsening renal failure with significant uremia, electrolyte derangements, and infection. Brain CT negative (8) Acute respiratory failure with hypoxia: Code(s): J96.01 - Acute respiratory failure with hypoxia Status: Acute Assessment and Plan: Patient was reportedly hypoxic with an SpO2 in the 50s on EMS arrival however that has not been appreciated here. I suspect that she is so clamped down and cyanotic that they were not getting an accurate reading. SpO2 is currently in the high 90s on room air. Continue to monitor respiratory status still critically ill Discussed with family 07/07/2022 (9) Hyperglycemia: Code(s): R73.9 - Hyperglycemia, unspecified Status: Acute Assessment and Plan: Metformin on hold (no documented history of diabetes). No ketones noted in urine. Check A1c. Dextrose drip since NPO Plan Hypernatremia change fluid to D5 water with 50 of sodium bicarb. Slow improvement in sodium level. Currently at 160 DVT prophylaxis heparin subQ Subjective Date/time seen: 07/08/22 15:57 Interval history: This is a 76-year-old female with history of dementia, diabetes, and hypertension who presented to the emergency department via EMS from [facility] for evaluation after she was found unresponsive and hypoxic. She will rarely open her eyes and withdrawals to noxious stimuli though she does not answer any questions (not unusual for the patient as I had similar interactions with her when involved with her care previously). As such, the following history is obtained via a review of her electronic medical records as well as discussions with her daughter Ale who is at bedside. Ale and her family have had flu recently and they have not seen the patie
[2022-07-08 16:42] LABS: Glucose Point of Care 117 mg/dl (65-105)
[2022-07-08 16:46] LABS: Anion Gap 11 mmol/L (8-16); Blood Urea Nitrogen 87 mg/dL (7-17); Calcium 8.3 mg/dL (8.4-10.2); Carbon Dioxide 20 mmol/L (22-30); Chloride 125 mmol/L (98-107); Estimated CRCL calculation 17 ml/min; Estimated Glomerular Filt Rate 17; Glucose 137 mg/dL (65-110); Potassium 2.9 mmol/L (3.4-5.0); Sodium 156 mmol/L (137-145)
[2022-07-08] MEDS: POTASSIUM CHLORIDE 20 MEQ PACKET (FOR LIQUID) 40 MEQ PO (17:10)
[2022-07-08 20:43] LABS: Glucose Point of Care 106 mg/dl (65-105)
[2022-07-08 20:46] LABS: Anion Gap 10 mmol/L (8-16); Blood Urea Nitrogen 82 mg/dL (7-17); Calcium 8.4 mg/dL (8.4-10.2); Carbon Dioxide 17 mmol/L (22-30); Chloride 126 mmol/L (98-107); Estimated CRCL calculation 19 ml/min; Estimated Glomerular Filt Rate 19; Glucose 136 mg/dL (65-110); Potassium 3.6 mmol/L (3.4-5.0); Sodium 153 mmol/L (137-145)
[2022-07-08] MEDS: HEPARIN SODIUM 5,000 UNITS/ML VIAL 5000 UNITS SUB-Q (22:22)
[2022-07-09] VITALS (13 sets, daily range): BP systolic 91–148; BP diastolic 56–111; PULSE 45–107; RESP 16–26; TEMP 36.1–36.9; O2SAT 91–100
[2022-07-09] MEDS: SODIUM BICARBONATE 8.4% 50 MEQ in DEXTROSE 5% 1,000 ML 1,000 ML 75 MEQ IV CONT (01:00)
[2022-07-09 04:44] LABS: Toxigenic C. Diff NEGATIVE (NEGATIVE)
[2022-07-09 04:47] LABS: Hemoglobin 10.8 g/dL (12.0-15.0); Mean Corpuscular HGB Conc 31.8 g/dl (32-36); Mean Corpuscular Hemoglobin 30.9 pg (26-34); Mean Corpuscular Volume 97.4 fl (80-100); Mean Platelet Volume 11.8 fl (7.4-10.4); Platelet Count Result 270 k/mm3 (150-375); Red Blood Count 3.49 M/mm3 (4.2-5.4); Red Cell Distribution Width 14.5 % (11.5-14.5); White Blood Count 12.5 K/mm3 (4.5-10.0)
[2022-07-09 04:52] LABS: Potassium 2.9 mmol/L (3.4-5.0)
[2022-07-09 04:55] LABS: Alanine Aminotransferase 25 U/L (6-35); Albumin Level 2.9 g/dL (3.5-5.1); Alkaline Phosphatase 88 U/L (38-126); Anion Gap 7 mmol/L (8-16); Anion Gap 8 mmol/L (8-16); Aspartate Amino Transferase 41 U/L (14-36); Bilirubin,Total 0.4 mg/dL (0.2-1.3); Blood Urea Nitrogen 67 mg/dL (7-17); Blood Urea Nitrogen 68 mg/dL (7-17); Calcium 8.1 mg/dL (8.4-10.2); Calcium 8.3 mg/dL (8.4-10.2); Carbon Dioxide 22 mmol/L (22-30); Chloride 127 mmol/L (98-107); Chloride 128 mmol/L (98-107); Estimated CRCL calculation 22 ml/min; Estimated Glomerular Filt Rate 23; Glucose 150 mg/dL (65-110); Glucose 151 mg/dL (65-110); Magnesium 1.7 mg/dL (1.6-2.3); Potassium 2.9 mmol/L (3.4-5.0); Sodium 157 mmol/L (137-145)
[2022-07-09 05:14] LABS: Vancomycin Trough < 5.0 ug/mL (10.0-20.0)
[2022-07-09 05:47] LABS: Band Neutrophils Percent 13 % (0-6); Eosinophils Absolute Manual 0.12 K/mm3 (0.02-0.5); Eosinophils Percent Manual 1 % (0-4); Large Platelets Present; Monocytes Absolute Manual 0.75 K/mm3 (0.1-0.90); Monocytes Percent Manual 6 % (3-9); Myelocytes Percent 1 %; Neutrophils Percent Manual 63 % (46-73); Total Cells Counted 100
[2022-07-09 05:48] LABS: Hypochromasia 1+ (NORMAL); Schistocytes None Seen (NORMAL)
[2022-07-09 05:49] LABS: Microcytosis 1+ (NORMAL)
[2022-07-09 09:04] LABS: Glucose Point of Care 148 mg/dl (65-105)
[2022-07-09] MEDS: LORATADINE 10 MG TABLET PO (09:54)
[2022-07-09] MEDS: PANTOPRAZOLE SODIUM IV 40 MG VIAL IV PUSH ×2 (09:54→21:44)
[2022-07-09] MEDS: HEPARIN SODIUM 5,000 UNITS/ML VIAL 5000 UNITS SUB-Q ×2 (09:54→21:44)
[2022-07-09] MEDS: DEXTROSE 5% 1,000 ML 1,000 ML 75 ML IV CONT (09:55)
--- NOTE | 2022-07-09 10:20 | PCNFU ---
Nutrition Follow-Up Complete: Inadequate Oral Intake as related to unresponsiveness as evidenced by no po intake. Goal:Meet estimated nutritional needs. Pt is not progressing towards goal. Pt current nutrition is NPO. Nutrition recommendation: Initiate tube feedings if necessary. Last recorded weight is 82 kg - stable at this time Bowel Motility: +BM 07/07 Labs Reviewed: Hgb:10.8, HCT:34, Alb:2.9, NA:157, BUN:67, CR:2.1, glu:148 Meds Noted: zofran, protonix Skin: no skin issues noted Additional Notes: Pt has a heart healthy diet order but is NPO at this time because she is not alert and oriented per nursing. Patient has NGT but no plans for nutrition support at this time. If tube feedings are to start for nutrition support, recommend Nepro at 20 ml/hr advance by 10 ml q 4 hours to goal rate of 40 ml/hr. To provide 1584 kcals/71 gms protein/670 ml water. Flush 100 ml q 4 hours due to elevated Na level of 160. Will monitor for diet order, intake, need for alternative nutrition support, labs. Follow up in 3 days.
[2022-07-09 11:11] LABS: Anion Gap 8 mmol/L (8-16); Blood Urea Nitrogen 61 mg/dL (7-17); Calcium 7.8 mg/dL (8.4-10.2); Carbon Dioxide 23 mmol/L (22-30); Chloride 123 mmol/L (98-107); Estimated CRCL calculation 27 ml/min; Estimated Glomerular Filt Rate 29; Glucose 133 mg/dL (65-110); Potassium 3.2 mmol/L (3.4-5.0); Sodium 154 mmol/L (137-145)
[2022-07-09] MEDS: POTASSIUM CHLORIDE 20 MEQ PACKET (FOR LIQUID) 40 MEQ FEED TUBE (11:37)
[2022-07-09 12:47] LABS: Glucose Point of Care 125 mg/dl (65-105)
--- NOTE | 2022-07-09 14:42 | P.PNNP_ITS ---
Progress Note: A&P Assessment and Plan (1) ANABELL (acute kidney injury): Code(s): N17.9 - Acute kidney failure, unspecified Status: Acute Assessment and Plan: * ongoing improvement noted * multifactorial etiology: * sepsis/infection * prerenal factors * relative hypotension * medications -- on DAVIAN-I, HCTZ, lasix, and NSAIDs prior to admission * renal ultrasound noted * follow repeat labs and UOP * continue current therapy (2) Stage 3b chronic kidney disease: Code(s): N18.32 - Chronic kidney disease, stage 3b Status: Chronic Assessment and Plan: * baseline creatinine seems to run ~ 1.5 - 1.9mg/dl * presumably due to HTN, DM, CHF, vascular disease and age (3) Hypernatremia: Code(s): E87.0 - Hyperosmolality and hypernatremia Status: Acute Assessment and Plan: * likely due to free water deficit from poor oral fluid intake * this is likely worsened by IVF fluid resuscitation efforts * adjusting IVFs but goal is to try to wean off * since NG tube in place, started on free water flushes to compensate (4) Sepsis: Code(s): A41.9 - Sepsis, unspecified organism Status: Acute Assessment and Plan: * as noted by leukocytosis, ANABELL, lactic acidosis and tachycardia on admission * blood cultures positive for Enterococcus * urine culture negative * on antibiotics (5) Metabolic acidosis: Code(s): E87.20 - Acidosis, unspecified Status: Acute Assessment and Plan: * resolved * due to combo of ANABELL, lactic acidosis, and possible metformin use * off bicarbonate fluids at this time (6) Metabolic encephalopathy: Code(s): G93.41 - Metabolic encephalopathy Status: Acute Assessment and Plan: * slow improvement noted * likely due to several issues: * ANABELL * uremia * electrolytes derangements * infection/sepsis * follow mentation with current interventions (7) RSV infection: Code(s): B33.8 - Other specified viral diseases Status: Acute Assessment and Plan: * supportive care for now * may have been possible trigger for sepsis Will continue to follow. Subjective Date/time seen: 07/09/22 14:42 No new issues or problems to report; mentation seems a bit better as she is answering some questions (when previously she was unresponsive); urine output and hemodynamics stable; renal function improved and IVFs adjusted again due to ongoing hypernatremia. Exam Narrative: General: chronically ill appearing female; a bit more responsive Heart: normal S1 and S2; no rub Lungs: coarse breath sounds Abdomen: soft, nontender, nondistended, positive bowel sounds Extremities: no cyanosis or clubbing; no edema Skin: warm and intact Objective Data Vital Signs Vital Signs: Vital Signs Temp Pulse Resp BP Pulse Ox O2 Del Method 07/09/22 12:00 82 07/09/22 12:00 96.9 F L 52 L 26 H 148/82 H 96 07/09/22 11:59 100 Room Air 07/09/22 10:00 101 H 07/09/22 08:00 101 H 07/09/22 08:00 98.4 F 100 26 H 118/82 91 07/09/22 08:00 100 Room Air 07/09/22 06:00 92 07/09/22 04:00 97.6 F 105 H 16 100/56 L 100 07/09/22 04:00 107 H 07/09/22 04:00 Room Air 07/09/22 02:00 105 H
--- NOTE | 2022-07-09 14:42 | PM.PNNEP ---
Progress Note: A&P Assessment and Plan (1) ANABELL (acute kidney injury): Code(s): N17.9 - Acute kidney failure, unspecified Status: Acute Assessment and Plan: ongoing improvement noted multifactorial etiology: sepsis/infection prerenal factors relative hypotension medications -- on DAVIAN-I, HCTZ, lasix, and NSAIDs prior to admission renal ultrasound noted follow repeat labs and UOP continue current therapy (2) Stage 3b chronic kidney disease: Code(s): N18.32 - Chronic kidney disease, stage 3b Status: Chronic Assessment and Plan: baseline creatinine seems to run ~ 1.5 - 1.9mg/dl presumably due to HTN, DM, CHF, vascular disease and age (3) Hypernatremia: Code(s): E87.0 - Hyperosmolality and hypernatremia Status: Acute Assessment and Plan: likely due to free water deficit from poor oral fluid intake this is likely worsened by IVF fluid resuscitation efforts adjusting IVFs but goal is to try to wean off since NG tube in place, started on free water flushes to compensate (4) Sepsis: Code(s): A41.9 - Sepsis, unspecified organism Status: Acute Assessment and Plan: as noted by leukocytosis, ANABELL, lactic acidosis and tachycardia on admission blood cultures positive for Enterococcus urine culture negative on antibiotics (5) Metabolic acidosis: Code(s): E87.20 - Acidosis, unspecified Status: Acute Assessment and Plan: resolved due to combo of ANABELL, lactic acidosis, and possible metformin use off bicarbonate fluids at this time (6) Metabolic encephalopathy: Code(s): G93.41 - Metabolic encephalopathy Status: Acute Assessment and Plan: slow improvement noted likely due to several issues: ANABELL uremia electrolytes derangements infection/sepsis follow mentation with current interventions (7) RSV infection: Code(s): B33.8 - Other specified viral diseases Status: Acute Assessment and Plan: supportive care for now may have been possible trigger for sepsis Will continue to follow. Subjective Date/time seen: 07/09/22 14:42 No new issues or problems to report; mentation seems a bit better as she is answering some questions (when previously she was unresponsive); urine output and hemodynamics stable; renal function improved and IVFs adjusted again due to ongoing hypernatremia. Exam Narrative: General: chronically ill appearing female; a bit more responsive Heart: normal S1 and S2; no rub Lungs: coarse breath sounds Abdomen: soft, nontender, nondistended, positive bowel sounds Extremities: no cyanosis or clubbing; no edema Skin: warm and intact Objective Data Vital Signs Vital Signs: Vital Signs Temp Pulse Resp BP Pulse Ox O2 Del Method 07/09/22 12:00 82 07/09/22 12:00 96.9 F L 52 L 26 H 148/82 H 96 07/09/22 11:59 100 Room Air 07/09/22 10:00 101 H 07/09/22 08:00 101 H 07/09/22 08:00 98.4 F 100 26 H 118/82 91 07/09/22 08:00 100 Room Air 07/09/22 06:00 92 07/09/22 04:00 97.6 F 105 H 16 100/56 L 100 07/09/22 04:00 107 H 07/09/22 04:00 Room Air 07/09/22 02:00 105 H 07/09/22 00:00 106 H 07/09/22 00:00 97.0 F L 106 H 20 100/56 L 100 07/09/22 00:00 Room Air 07/08/22 22:00 108 H 07/08/22 20:00 97.7 F 110 H 20 109/56 L 100 07/08/22 20:00 Room Air 07/08/22 20:00 107 H 07/08/22 18:00 105 H 07/08/22 16:00 108 H 07/08/22 16:00 Room Air 07/08/22 16:00 97.9 F 109 H 22 H 128/66 96 Intake/Output Intake/Output: Intake & Output 07/06/22 07/07/22 07/08/22 07/09/22 23:59 23:59 23:59 23:59 Intake Total 2450 2565 1600 2287 Output Total 1000 1650 1250 Balance 2450 1565 -50 1037 Meds/Results Medications: Active Medications Generic Name Dose Route Start Last Ad
[2022-07-09 17:38] LABS: Glucose Point of Care 150 mg/dl (65-105)
--- NOTE | 2022-07-09 18:13 | PM.IMPN ---
Progress Note: A&P Assessment and Plan (1) Sepsis: Code(s): A41.9 - Sepsis, unspecified organism Status: Acute Assessment and Plan: Severe sepsis with ANABELL lactic acidosis encephalopathy Unclear source RSV positive chest x-rays negative UA is not suggestive of infection Add vancomycin continue ceftriaxone Gram-positive cocci in blood culture noted. Identified as Enterococcus faecalis. Will continue vancomycin. Stop ceftriaxone (2) RSV infection: Code(s): B33.8 - Other specified viral diseases Status: Acute Assessment and Plan: Supportive care. (3) Abnormal urinalysis: Code(s): R82.90 - Unspecified abnormal findings in urine Status: Acute Assessment and Plan: Urine looks contaminated however given sepsis picture she has been started on empiric antibiotics, cultures negative so far (4) Qnynz-tj-hccwsrl kidney injury: Code(s): N17.9 - Acute kidney failure, unspecified; N18.9 - Chronic kidney disease, unspecified Status: Acute Assessment and Plan: Likely severe dehydration related. Mildly cast in the UA. Otherwise bland. IV resuscitation is also severe metabolic acidosis will change fluid to bicarb drip Seems urine output has improved a bit since initiation of IV fluids Renal ultrasound pending Matt in place Nephrology consult Urine output has improved. Creatinine has continued to improve down to 3. Metabolic acidosis improved as well. Change bicarb drip with 1 amp of bicarb due to ongoing hypernatremia. Fluids changed mildly hypernatremic replace potassium nephrology following appreciate his recommendations (5) Hyperkalemia: Code(s): E87.5 - Hyperkalemia Status: Acute Assessment and Plan: Potassium has improved to 5.6 with IV fluids which will be continued. One amp bicarb ordered given concomitant acidosis. (6) Metabolic acidosis: Code(s): E87.20 - Acidosis, unspecified Status: Acute Assessment and Plan: Due to a combination of renal failure, lactic acidosis, and non gap hyperchloremic acidosis. Started on bicarb Change fluid to included D5 water with 1 amp of bicarb Now bicarb has been stopped only on D5 water (7) Metabolic encephalopathy: Code(s): G93.41 - Metabolic encephalopathy Status: Acute Assessment and Plan: Due to a combination of worsening renal failure with significant uremia, electrolyte derangements, and infection. Brain CT negative Slowly improving with correction of her electrolytes and metabolic issues and renal failure (8) Acute respiratory failure with hypoxia: Code(s): J96.01 - Acute respiratory failure with hypoxia Status: Acute Assessment and Plan: Patient was reportedly hypoxic with an SpO2 in the 50s on EMS arrival however that has not been appreciated here. I suspect that she is so clamped down and cyanotic that they were not getting an accurate reading. SpO2 is currently in the high 90s on room air. Continue to monitor respiratory status still critically ill Discussed with family 07/07/2022 Slowly improving (9) Hyperglycemia: Code(s): R73.9 - Hyperglycemia, unspecified Status: Acute Assessment and Plan: Metformin on hold (no documented history of diabetes). No ketones noted in urine. Check A1c. Dextrose drip since NPO Plan Hypernatremia change fluid to D5 water with 50 of sodium bicarb. Slow improvement in sodium level. Currently at 160 DVT prophylaxis heparin subQ Subjective Date/time seen: 07/09/22 18:13 Interval history: This is a 76-year-old female with history of dementia, diabetes, and hypertension who presented to the emergency department via EMS from [facility] for evaluation after she was found unresponsive and hypoxic. She will rarely open her eyes and withdrawals to noxious stimuli though she does not answer any questions (not unusual for the patient as I had similar
[2022-07-09 21:04] LABS: Glucose Point of Care 122 mg/dl (65-105)
[2022-07-09] MEDS: DEXTROSE 5% 1,000 ML 1,000 ML 50 ML IV CONT (22:59)
[2022-07-09 23:12] LABS: Anion Gap 5 mmol/L (8-16); Blood Urea Nitrogen 47 mg/dL (7-17); Calcium 7.7 mg/dL (8.4-10.2); Carbon Dioxide 22 mmol/L (22-30); Chloride 118 mmol/L (98-107); Estimated CRCL calculation 30 ml/min; Estimated Glomerular Filt Rate 33; Glucose 145 mg/dL (65-110); Potassium 2.9 mmol/L (3.4-5.0); Sodium 145 mmol/L (137-145)
[2022-07-10] VITALS (13 sets, daily range): BP systolic 115–135; BP diastolic 52–97; PULSE 44–104; RESP 16–20; TEMP 36.2–36.6; O2SAT 95–100
[2022-07-10] MEDS: POTASSIUM CHLORIDE 20 MEQ PACKET (FOR LIQUID) 60 MEQ PO (00:37)
[2022-07-10] MEDS: SODIUM CHLORIDE 0.9% IV 1,000 ML 75 ML IV CONT (00:37)
--- NOTE | 2022-07-10 05:23 | PC.NURSE ---
This patient, Rody Ardon, was transferred to [ [facility]] on 07/10/22 at 0523. Personal belongings sent with patient. Report given to [Nuvia Albert ]. Appropriate documentation sent with patient.
[2022-07-10 06:12] LABS: Basophils Absolute Auto 0.1 K/mm3 (0.0-0.1); Basophils Percent Auto 0.8 % (0.2-1.2); Eosinophils Absolute Auto 0.2 K/mm3 (0-0.3); Hematocrit 35.3 % (37.0-47.0); Hemoglobin 10.9 g/dL (12.0-15.0); Immature Granulocyte Absolute 0.33 K/mm3 (0.00-0.031); Lymphocytes Absolute Auto 2.25 K/mm3 (0.9-3.2); Lymphocytes Percent Auto 20.5 % (18.3-44.2); Mean Corpuscular HGB Conc 30.9 g/dl (32-36); Mean Corpuscular Hemoglobin 31.1 pg (26-34); Mean Corpuscular Volume 100.9 fl (80-100); Monocytes Absolute Auto 0.7 K/mm3 (0.1-0.6); Monocytes Percent Auto 5.9 % (2.6-8.5); Neutrophils Absolute Auto 7.4 K/mm3 (1.3-6.7); Neutrophils Percent Auto 67.8 % (45.5-73.1); Platelet Count Result 245 k/mm3 (150-375); Red Cell Distribution Width 14.1 % (11.5-14.5)
[2022-07-10 06:39] LABS: Alanine Aminotransferase 25 U/L (6-35); Albumin Level 2.7 g/dL (3.5-5.1); Alkaline Phosphatase 93 U/L (38-126); Anion Gap 6 mmol/L (8-16); Aspartate Amino Transferase 39 U/L (14-36); Bilirubin,Total 0.5 mg/dL (0.2-1.3); Blood Urea Nitrogen 41 mg/dL (7-17); Calcium 7.8 mg/dL (8.4-10.2); Carbon Dioxide 21 mmol/L (22-30); Chloride 124 mmol/L (98-107); Estimated CRCL calculation 30 ml/min; Estimated Glomerular Filt Rate 33; Glucose 124 mg/dL (65-110); Magnesium 1.4 mg/dL (1.6-2.3); Potassium 3.8 mmol/L (3.4-5.0); Sodium 151 mmol/L (137-145)
[2022-07-10] MEDS: DEXTROSE 5%/0.45% SOD CHL 1,000 ML 75 ML IV CONT (07:30)
[2022-07-10 07:57] LABS: Glucose Point of Care 146 mg/dl (65-105)
[2022-07-10] MEDS: PANTOPRAZOLE SODIUM IV 40 MG VIAL IV PUSH ×2 (09:46→20:56)
[2022-07-10] MEDS: MAGNESIUM SULF 1 GM/D5W 100 ML 1 GM/100 ML BAG IVPB (09:46)
[2022-07-10] MEDS: LORATADINE 10 MG TABLET PO (09:46)
[2022-07-10] MEDS: HEPARIN SODIUM 5,000 UNITS/ML VIAL 5000 UNITS SUB-Q ×2 (10:21→20:55)
--- NOTE | 2022-07-10 10:28 | P.PNNP_ITS ---
Progress Note: A&P Assessment and Plan (1) ANABELL (acute kidney injury): Code(s): N17.9 - Acute kidney failure, unspecified Status: Acute Assessment and Plan: * resolving if not resolved * multifactorial etiology: * sepsis/infection * prerenal factors * relative hypotension * medications -- on DAVIAN-I, HCTZ, lasix, and NSAIDs prior to admission * renal ultrasound noted * follow repeat labs and UOP * continue current therapy (2) Stage 3b chronic kidney disease: Code(s): N18.32 - Chronic kidney disease, stage 3b Status: Chronic Assessment and Plan: * baseline creatinine seems to run ~ 1.5 - 1.9mg/dl * presumably due to HTN, DM, CHF, vascular disease and age (3) Hypernatremia: Code(s): E87.0 - Hyperosmolality and hypernatremia Status: Acute Assessment and Plan: * improving * likely due to free water deficit from poor oral fluid intake * this is likely worsened by previous IVF fluid resuscitation efforts * adjusting IVFs but goal is to try to wean off * since NG tube in place, on free water flushes to compensate along with tube feeds (4) Sepsis: Code(s): A41.9 - Sepsis, unspecified organism Status: Acute Assessment and Plan: * as noted by leukocytosis, ANABELL, lactic acidosis and tachycardia on admission * blood cultures positive for Enterococcus * urine culture negative * on antibiotics (5) Metabolic acidosis: Code(s): E87.20 - Acidosis, unspecified Status: Acute Assessment and Plan: * resolved * due to combo of ANABELL, lactic acidosis, and possible metformin use * off bicarbonate fluids at this time (6) Metabolic encephalopathy: Code(s): G93.41 - Metabolic encephalopathy Status: Acute Assessment and Plan: * slow improvement noted * likely due to several issues: * ANABELL * uremia * electrolytes derangements * infection/sepsis * follow mentation with current interventions (7) RSV infection: Code(s): B33.8 - Other specified viral diseases Status: Acute Assessment and Plan: * supportive care for now * may have been possible trigger for sepsis Will continue to follow. Subjective Date/time seen: 07/10/22 10:28 Sodium seemed to overcorrect yesterday so IVFs as well as free water flushes adjusted; she is more awake and alert but not following simple commands and still not eating/drinking either. Exam Narrative: General: chronically ill appearing female; a bit more responsive Heart: normal S1 and S2; no rub Lungs: coarse breath sounds Abdomen: soft, nontender, nondistended, positive bowel sounds Extremities: no cyanosis or clubbing; no edema Skin: warm and intact Objective Data Vital Signs Vital Signs: Vital Signs Temp Pulse Resp BP Pulse Ox O2 Del Method 07/10/22 10:00 86 07/10/22 08:00 98 Room Air 07/10/22 08:00 95 07/10/22 12:00 97.9 F 94 16 122/67 98 07/10/22 08:00 97.3 F L 104 H 16 126/61 100 07/10/22 05:39 98 07/10/22 04:00 97.3 F L 87 20 115/58 L 100 07/10/22 04:00 96 07/10/22 03:29 95 Room Air 07/10/22 02:00 92 07/10/22 00:00 92 07/09/22 22:00 90 07/09/22 20:00 96
--- NOTE | 2022-07-10 10:28 | PM.PNNEP ---
Progress Note: A&P Assessment and Plan (1) ANABELL (acute kidney injury): Code(s): N17.9 - Acute kidney failure, unspecified Status: Acute Assessment and Plan: resolving if not resolved multifactorial etiology: sepsis/infection prerenal factors relative hypotension medications -- on DAVIAN-I, HCTZ, lasix, and NSAIDs prior to admission renal ultrasound noted follow repeat labs and UOP continue current therapy (2) Stage 3b chronic kidney disease: Code(s): N18.32 - Chronic kidney disease, stage 3b Status: Chronic Assessment and Plan: baseline creatinine seems to run ~ 1.5 - 1.9mg/dl presumably due to HTN, DM, CHF, vascular disease and age (3) Hypernatremia: Code(s): E87.0 - Hyperosmolality and hypernatremia Status: Acute Assessment and Plan: improving likely due to free water deficit from poor oral fluid intake this is likely worsened by previous IVF fluid resuscitation efforts adjusting IVFs but goal is to try to wean off since NG tube in place, on free water flushes to compensate along with tube feeds (4) Sepsis: Code(s): A41.9 - Sepsis, unspecified organism Status: Acute Assessment and Plan: as noted by leukocytosis, ANABELL, lactic acidosis and tachycardia on admission blood cultures positive for Enterococcus urine culture negative on antibiotics (5) Metabolic acidosis: Code(s): E87.20 - Acidosis, unspecified Status: Acute Assessment and Plan: resolved due to combo of ANABELL, lactic acidosis, and possible metformin use off bicarbonate fluids at this time (6) Metabolic encephalopathy: Code(s): G93.41 - Metabolic encephalopathy Status: Acute Assessment and Plan: slow improvement noted likely due to several issues: ANABELL uremia electrolytes derangements infection/sepsis follow mentation with current interventions (7) RSV infection: Code(s): B33.8 - Other specified viral diseases Status: Acute Assessment and Plan: supportive care for now may have been possible trigger for sepsis Will continue to follow. Subjective Date/time seen: 07/10/22 10:28 Sodium seemed to overcorrect yesterday so IVFs as well as free water flushes adjusted; she is more awake and alert but not following simple commands and still not eating/drinking either. Exam Narrative: General: chronically ill appearing female; a bit more responsive Heart: normal S1 and S2; no rub Lungs: coarse breath sounds Abdomen: soft, nontender, nondistended, positive bowel sounds Extremities: no cyanosis or clubbing; no edema Skin: warm and intact Objective Data Vital Signs Vital Signs: Vital Signs Temp Pulse Resp BP Pulse Ox O2 Del Method 07/10/22 10:00 86 07/10/22 08:00 98 Room Air 07/10/22 08:00 95 07/10/22 12:00 97.9 F 94 16 122/67 98 07/10/22 08:00 97.3 F L 104 H 16 126/61 100 07/10/22 05:39 98 07/10/22 04:00 97.3 F L 87 20 115/58 L 100 07/10/22 04:00 96 07/10/22 03:29 95 Room Air 07/10/22 02:00 92 07/10/22 00:00 92 07/09/22 22:00 90 07/09/22 20:00 96 07/10/22 00:00 100 Room Air 07/10/22 00:00 97.8 F 44 L 20 135/97 H 100 07/09/22 20:00 97.3 F L 45 L 18 91/76 L 100 07/09/22 18:00 91 07/09/22 16:00 97.9 F 46 L 20 140/111 H 91 07/09/22 16:00 100 Room Air 07/09/22 16:00 87 Intake/Output Intake/Output: Intake & Output 07/07/22 07/08/22 07/09/22 07/10/22 23:59 23:59 23:59 23:59 Intake Total 2565 1600 3387 800 Output Total 1000 1650 1550 1200 Balance 1565 -50 1837 -400 Meds/Results Medications: Active Medications Generic Name Dose Route Start Last Admin Trade Name Freq PRN Reason Stop Dose Admin Acetaminophen 650 mg 07/07/22 17:00 Acetaminophen 325 Mg Tablet BY MOUTH Q4H PRN Fe
--- NOTE | 2022-07-10 12:13 | P.PNIM_ITS ---
Progress Note: A&P Assessment and Plan (1) Sepsis: Code(s): A41.9 - Sepsis, unspecified organism Status: Acute Assessment and Plan: Severe sepsis with ANABELL lactic acidosis encephalopathy Unclear source RSV positive chest x-rays negative UA is not suggestive of infection Add vancomycin continue ceftriaxone Gram-positive cocci in blood culture noted. Identified as Enterococcus faecalis. Will continue vancomycin. Stop ceftriaxone (2) RSV infection: Code(s): B33.8 - Other specified viral diseases Status: Acute Assessment and Plan: Supportive care. (3) Abnormal urinalysis: Code(s): R82.90 - Unspecified abnormal findings in urine Status: Acute Assessment and Plan: Urine looks contaminated however given sepsis picture she has been started on empiric antibiotics, cultures negative so far (4) Irdwq-af-rsuqxph kidney injury: Code(s): N17.9 - Acute kidney failure, unspecified; N18.9 - Chronic kidney disease, unspecified Status: Acute Assessment and Plan: Likely severe dehydration related. Mildly cast in the UA. Otherwise bland. IV resuscitation is also severe metabolic acidosis will change fluid to bicarb drip Seems urine output has improved a bit since initiation of IV fluids Renal ultrasound pending Matt in place Nephrology consult Urine output has improved. Creatinine has continued to improve down to 3. Metabolic acidosis improved as well. Change bicarb drip with 1 amp of bicarb due to ongoing hypernatremia. Fluids changed mildly hypernatremic replace potassium nephrology following appreciate his recommendations (5) Hyperkalemia: Code(s): E87.5 - Hyperkalemia Status: Acute Assessment and Plan: Potassium has improved to 5.6 with IV fluids which will be continued. One amp bicarb ordered given concomitant acidosis. (6) Metabolic acidosis: Code(s): E87.20 - Acidosis, unspecified Status: Acute Assessment and Plan: Due to a combination of renal failure, lactic acidosis, and non gap hyperchloremic acidosis. Started on bicarb Change fluid to included D5 water with 1 amp of bicarb Now bicarb has been stopped only on D5 water (7) Metabolic encephalopathy: Code(s): G93.41 - Metabolic encephalopathy Status: Acute Assessment and Plan: Due to a combination of worsening renal failure with significant uremia, electrolyte derangements, and infection. Brain CT negative Slowly improving with correction of her electrolytes and metabolic issues and renal failure (8) Acute respiratory failure with hypoxia: Code(s): J96.01 - Acute respiratory failure with hypoxia Status: Acute Assessment and Plan: Patient was reportedly hypoxic with an SpO2 in the 50s on EMS arrival however that has not been appreciated here. I suspect that she is so clamped down and cyanotic that they were not getting an accurate reading. SpO2 is currently in the high 90s on room air. Continue to monitor respiratory status still critically ill Discussed with fam
[2022-07-10 12:17] LABS: Glucose Point of Care 131 mg/dl (65-105)
[2022-07-10 12:43] LABS: Anion Gap 3 mmol/L (8-16); Blood Urea Nitrogen 35 mg/dL (7-17); Calcium 7.4 mg/dL (8.4-10.2); Carbon Dioxide 25 mmol/L (22-30); Chloride 117 mmol/L (98-107); Estimated CRCL calculation 35 ml/min; Estimated Glomerular Filt Rate 40; Glucose 138 mg/dL (65-110); Potassium 3.4 mmol/L (3.4-5.0); Sodium 145 mmol/L (137-145)
[2022-07-10 16:58] LABS: Glucose Point of Care 122 mg/dl (65-105)
[2022-07-10 18:38] LABS: Anion Gap 4 mmol/L (8-16); Blood Urea Nitrogen 31 mg/dL (7-17); Calcium 7.8 mg/dL (8.4-10.2); Carbon Dioxide 24 mmol/L (22-30); Chloride 118 mmol/L (98-107); Estimated CRCL calculation 37 ml/min; Estimated Glomerular Filt Rate 43; Glucose 118 mg/dL (65-110); Potassium 3.6 mmol/L (3.4-5.0); Sodium 146 mmol/L (137-145)
[2022-07-10 20:52] LABS: Glucose Point of Care 113 mg/dl (65-105)
[2022-07-11] VITALS (12 sets, daily range): BP systolic 113–134; BP diastolic 64–80; PULSE 79–103; RESP 18–20; TEMP 36.2–36.6; O2SAT 95–100
[2022-07-11 05:49] LABS: Alanine Aminotransferase 35 U/L (6-35); Albumin Level 2.7 g/dL (3.5-5.1); Alkaline Phosphatase 99 U/L (38-126); Anion Gap 4 mmol/L (8-16); Aspartate Amino Transferase 39 U/L (14-36); Bilirubin,Total 0.4 mg/dL (0.2-1.3); Blood Urea Nitrogen 23 mg/dL (7-17); Calcium 7.5 mg/dL (8.4-10.2); Carbon Dioxide 24 mmol/L (22-30); Chloride 117 mmol/L (98-107); Estimated CRCL calculation 37 ml/min; Estimated Glomerular Filt Rate 43; Glucose 131 mg/dL (65-110); Magnesium 1.6 mg/dL (1.6-2.3); Potassium 3.1 mmol/L (3.4-5.0); Sodium 145 mmol/L (137-145)
[2022-07-11 06:06] LABS: Basophils Absolute Auto 0.1 K/mm3 (0.0-0.1); Basophils Percent Auto 0.7 % (0.2-1.2); Eosinophils Absolute Auto 0.4 K/mm3 (0-0.3); Eosinophils Percent Auto 3.9 % (0-4.4); Hematocrit 32.9 % (37.0-47.0); Hemoglobin 10.3 g/dL (12.0-15.0); Immature Granulocyte Absolute 0.58 K/mm3 (0.00-0.031); Lymphocytes Absolute Auto 2.12 K/mm3 (0.9-3.2); Mean Corpuscular HGB Conc 31.3 g/dl (32-36); Mean Corpuscular Hemoglobin 31.2 pg (26-34); Mean Corpuscular Volume 99.7 fl (80-100); Mean Platelet Volume 11.5 fl (7.4-10.4); Monocytes Absolute Auto 0.7 K/mm3 (0.1-0.6); Monocytes Percent Auto 7.3 % (2.6-8.5); Neutrophils Absolute Auto 5.8 K/mm3 (1.3-6.7); Neutrophils Percent Auto 60.1 % (45.5-73.1); Platelet Count Result 222 k/mm3 (150-375); Red Cell Distribution Width 13.2 % (11.5-14.5); White Blood Count 9.7 K/mm3 (4.5-10.0)
[2022-07-11 07:20] LABS: Atypical Lymphocytes Present; Hypochromasia 1+ (NORMAL); Platelet Estimate Adequate (Adequate); Schistocytes None Seen (NORMAL)
[2022-07-11] MEDS: PANTOPRAZOLE SODIUM IV 40 MG VIAL IV PUSH ×2 (08:20→21:27)
[2022-07-11] MEDS: HEPARIN SODIUM 5,000 UNITS/ML VIAL 5000 UNITS SUB-Q ×2 (08:20→21:27)
[2022-07-11] MEDS: LORATADINE 10 MG TABLET PO (08:20)
[2022-07-11 09:32] LABS: Glucose Point of Care 173 mg/dl (65-105)
[2022-07-11] MEDS: POTASSIUM CHLORIDE 20 MEQ PACKET (FOR LIQUID) 40 MEQ FEED TUBE (12:00)
--- NOTE | 2022-07-11 12:03 | P.PNNP_ITS ---
Progress Note: A&P Assessment and Plan (1) ANABELL (acute kidney injury): Code(s): N17.9 - Acute kidney failure, unspecified Status: Acute Assessment and Plan: * resolved (if not better than baseline) * multifactorial etiology: * sepsis/infection * prerenal factors * relative hypotension * medications -- on DAVIAN-I, HCTZ, lasix, and NSAIDs prior to admission * renal ultrasound noted * follow repeat labs and UOP * continue current therapy (2) Stage 3b chronic kidney disease: Code(s): N18.32 - Chronic kidney disease, stage 3b Status: Chronic Assessment and Plan: * baseline creatinine seems to run ~ 1.5 - 1.9mg/dl * presumably due to HTN, DM, CHF, vascular disease and age (3) Hypernatremia: Code(s): E87.0 - Hyperosmolality and hypernatremia Status: Acute Assessment and Plan: * improving * likely due to free water deficit from poor oral fluid intake * this is likely worsened by previous IVF fluid resuscitation efforts * adjusting IVFs but goal is to try to wean off * since NG tube in place, on free water flushes to compensate along with tube feeds (4) Sepsis: Code(s): A41.9 - Sepsis, unspecified organism Status: Acute Assessment and Plan: * as noted by leukocytosis, ANABELL, lactic acidosis and tachycardia on admission * blood cultures positive for Enterococcus * urine culture negative * on antibiotics (5) Metabolic acidosis: Code(s): E87.20 - Acidosis, unspecified Status: Acute Assessment and Plan: * resolved * due to combo of ANABELL, lactic acidosis, and possible metformin use * off bicarbonate fluids at this time (6) Metabolic encephalopathy: Code(s): G93.41 - Metabolic encephalopathy Status: Acute Assessment and Plan: * slow improvement noted * likely due to several issues: * ANABELL * uremia * electrolytes derangements * infection/sepsis * follow mentation with current interventions (7) RSV infection: Code(s): B33.8 - Other specified viral diseases Status: Acute Assessment and Plan: * supportive care for now * may have been possible trigger for sepsis Not much else to offer given improvement in sodium and renal function -- would adjust free water flushes based on repeat sodium levels and replace other electrolytes as needed; will continue to follow from a distance. Subjective Date/time seen: 07/11/22 12:03 Mentation seems about the same -- opens eyes and looks at examiner but does not follow commands or respond to questions; sodium and renal function are stable if not improved with current therapy; no other issues/events overnight or earlier this morning. Exam Narrative: General: chronically ill appearing female; a bit more responsive Heart: normal S1 and S2; no rub Lungs: coarse breath sounds Abdomen: soft, nontender, nondistended, positive bowel sounds Extremities: no cyanosis or clubbing; no edema Skin: no rash or nodules Objective Data Vital Signs Vital Signs: Vital Signs Temp Pulse Resp BP Pulse Ox O2 Del Method 07/11/22 12:00 97.9 F 97 20 120/76 99 07/11/22 12:00 100 Room Air 07/11/22 10:00 79 07/11/22 08:00 85 07/11/22 08:00 97.2 F L 91 20 113/64 99 07/11/22 08:00 100 Room Air
--- NOTE | 2022-07-11 12:03 | PM.PNNEP ---
Progress Note: A&P Assessment and Plan (1) ANABELL (acute kidney injury): Code(s): N17.9 - Acute kidney failure, unspecified Status: Acute Assessment and Plan: resolved (if not better than baseline) multifactorial etiology: sepsis/infection prerenal factors relative hypotension medications -- on DAVIAN-I, HCTZ, lasix, and NSAIDs prior to admission renal ultrasound noted follow repeat labs and UOP continue current therapy (2) Stage 3b chronic kidney disease: Code(s): N18.32 - Chronic kidney disease, stage 3b Status: Chronic Assessment and Plan: baseline creatinine seems to run ~ 1.5 - 1.9mg/dl presumably due to HTN, DM, CHF, vascular disease and age (3) Hypernatremia: Code(s): E87.0 - Hyperosmolality and hypernatremia Status: Acute Assessment and Plan: improving likely due to free water deficit from poor oral fluid intake this is likely worsened by previous IVF fluid resuscitation efforts adjusting IVFs but goal is to try to wean off since NG tube in place, on free water flushes to compensate along with tube feeds (4) Sepsis: Code(s): A41.9 - Sepsis, unspecified organism Status: Acute Assessment and Plan: as noted by leukocytosis, ANABELL, lactic acidosis and tachycardia on admission blood cultures positive for Enterococcus urine culture negative on antibiotics (5) Metabolic acidosis: Code(s): E87.20 - Acidosis, unspecified Status: Acute Assessment and Plan: resolved due to combo of ANABELL, lactic acidosis, and possible metformin use off bicarbonate fluids at this time (6) Metabolic encephalopathy: Code(s): G93.41 - Metabolic encephalopathy Status: Acute Assessment and Plan: slow improvement noted likely due to several issues: ANABELL uremia electrolytes derangements infection/sepsis follow mentation with current interventions (7) RSV infection: Code(s): B33.8 - Other specified viral diseases Status: Acute Assessment and Plan: supportive care for now may have been possible trigger for sepsis Not much else to offer given improvement in sodium and renal function -- would adjust free water flushes based on repeat sodium levels and replace other electrolytes as needed; will continue to follow from a distance. Subjective Date/time seen: 07/11/22 12:03 Mentation seems about the same -- opens eyes and looks at examiner but does not follow commands or respond to questions; sodium and renal function are stable if not improved with current therapy; no other issues/events overnight or earlier this morning. Exam Narrative: General: chronically ill appearing female; a bit more responsive Heart: normal S1 and S2; no rub Lungs: coarse breath sounds Abdomen: soft, nontender, nondistended, positive bowel sounds Extremities: no cyanosis or clubbing; no edema Skin: no rash or nodules Objective Data Vital Signs Vital Signs: Vital Signs Temp Pulse Resp BP Pulse Ox O2 Del Method 07/11/22 12:00 97.9 F 97 20 120/76 99 07/11/22 12:00 100 Room Air 07/11/22 10:00 79 07/11/22 08:00 85 07/11/22 08:00 97.2 F L 91 20 113/64 99 07/11/22 08:00 100 Room Air 07/11/22 06:00 95 07/11/22 04:00 90 07/11/22 04:00 97.8 F 103 H 20 115/71 100 07/11/22 03:25 Room Air 07/11/22 01:54 94 07/11/22 00:00 90 07/11/22 00:00 Room Air 07/11/22 00:00 97.8 F 89 20 134/80 98 07/10/22 21:56 87 07/10/22 20:00 94 07/10/22 20:00 Room Air 07/10/22 20:00 97.2 F L 95 20 117/52 L 100 07/10/22 18:00 91 Intake/Output Intake/Output: Intake & Output 07/08/22 07/09/22 07/10/22 07/11/22 23:59 23:59 23:59 23:59 Intake Total 1600 3387 1124 919 Output Total 1650 1550 1700 1500 Balance -50 1837 -576 -581 Meds/Results Medications:
[2022-07-11 12:07] LABS: Glucose Point of Care 120 mg/dl (65-105)
--- NOTE | 2022-07-11 13:36 | PM.IMPN ---
Progress Note: A&P Assessment and Plan (1) Sepsis: Code(s): A41.9 - Sepsis, unspecified organism Status: Acute Assessment and Plan: Severe sepsis with ANABELL lactic acidosis encephalopathy Unclear source RSV positive chest x-rays negative UA is not suggestive of infection Add vancomycin continue ceftriaxone Gram-positive cocci in blood culture noted. Identified as Enterococcus faecalis. Will continue vancomycin. Stop ceftriaxone (2) RSV infection: Code(s): B33.8 - Other specified viral diseases Status: Acute Assessment and Plan: Supportive care. (3) Abnormal urinalysis: Code(s): R82.90 - Unspecified abnormal findings in urine Status: Acute Assessment and Plan: Urine looks contaminated however given sepsis picture she has been started on empiric antibiotics, cultures negative so far (4) Kxfps-sc-oyfduxt kidney injury: Code(s): N17.9 - Acute kidney failure, unspecified; N18.9 - Chronic kidney disease, unspecified Status: Acute Assessment and Plan: Likely severe dehydration related. Mildly cast in the UA. Otherwise bland. IV resuscitation is also severe metabolic acidosis will change fluid to bicarb drip Seems urine output has improved a bit since initiation of IV fluids Renal ultrasound pending Matt in place Nephrology consult Urine output has improved. Creatinine has continued to improve down to 3. Metabolic acidosis improved as well. Change bicarb drip with 1 amp of bicarb due to ongoing hypernatremia. Fluids changed mildly hypernatremic replace potassium nephrology following appreciate his recommendations (5) Hyperkalemia: Code(s): E87.5 - Hyperkalemia Status: Acute Assessment and Plan: Potassium has improved to 5.6 with IV fluids which will be continued. One amp bicarb ordered given concomitant acidosis. (6) Metabolic acidosis: Code(s): E87.20 - Acidosis, unspecified Status: Acute Assessment and Plan: Due to a combination of renal failure, lactic acidosis, and non gap hyperchloremic acidosis. Started on bicarb Change fluid to included D5 water with 1 amp of bicarb Now bicarb has been stopped only on D5 water (7) Metabolic encephalopathy: Code(s): G93.41 - Metabolic encephalopathy Status: Acute Assessment and Plan: Due to a combination of worsening renal failure with significant uremia, electrolyte derangements, and infection. Brain CT negative Slowly improving with correction of her electrolytes and metabolic issues and renal failure Encephalopathy is still ongoing despite correction his metabolic problems. His renal failure hyponatremia has been corrected. Will get MRI brain to further evaluate May need EEG Neurology consultation if continues to be an issue (8) Acute respiratory failure with hypoxia: Code(s): J96.01 - Acute respiratory failure with hypoxia Status: Acute Assessment and Plan: Patient was reportedly hypoxic with an SpO2 in the 50s on EMS arrival however that has not been appreciated here. I suspect that she is so clamped down and cyanotic that they were not getting an accurate reading. SpO2 is currently in the high 90s on room air. Continue to monitor respiratory status still critically ill Discussed with family 07/07/2022 Slowly improving (9) Hyperglycemia: Code(s): R73.9 - Hyperglycemia, unspecified Status: Acute Assessment and Plan: Metformin on hold (no documented history of diabetes). No ketones noted in urine. Check A1c. Dextrose drip since NPO Plan Hypernatremia change fluid to D5 water with 50 of sodium bicarb. Slow improvement in sodium level. Currently at 160 DVT prophylaxis heparin subQ Will start tube feeds Advanced tube feed Dietitian consultation Subjective Date/time seen: 07/11/22 13:36 Interval history: This is a 76-year-old female with history of dementia, diabetes,
[2022-07-11 16:02] LABS: Glucose Point of Care 129 mg/dl (65-105)
[2022-07-11 23:50] LABS: Glucose Point of Care 143 mg/dl (65-105)
[2022-07-12] VITALS (18 sets, daily range): BP systolic 108–126; BP diastolic 51–80; PULSE 84–100; RESP 16–22; TEMP 36.3–36.9; O2SAT 92–99
[2022-07-12 06:06] LABS: Vancomycin Trough 15.9 ug/mL (10.0-20.0)
[2022-07-12 07:56] LABS: Glucose Point of Care 166 mg/dl (65-105)
[2022-07-12] MEDS: PANTOPRAZOLE SODIUM IV 40 MG VIAL IV PUSH ×2 (09:30→21:48)
[2022-07-12] MEDS: HEPARIN SODIUM 5,000 UNITS/ML VIAL 5000 UNITS SUB-Q ×2 (09:30→21:48)
[2022-07-12] MEDS: LORATADINE 10 MG TABLET PO (09:46)
[2022-07-12 09:53] LABS: Alanine Aminotransferase 29 U/L (6-35); Albumin Level 2.5 g/dL (3.5-5.1); Alkaline Phosphatase 131 U/L (38-126); Anion Gap 4 mmol/L (8-16); Aspartate Amino Transferase 22 U/L (14-36); Bilirubin,Total 0.2 mg/dL (0.2-1.3); Blood Urea Nitrogen 17 mg/dL (7-17); Calcium 7.5 mg/dL (8.4-10.2); Carbon Dioxide 22 mmol/L (22-30); Chloride 120 mmol/L (98-107); Estimated CRCL calculation 44 ml/min; Estimated Glomerular Filt Rate 53; Glucose 133 mg/dL (65-110); Magnesium 1.5 mg/dL (1.6-2.3); Potassium 3.2 mmol/L (3.4-5.0); Sodium 146 mmol/L (137-145)
--- NOTE | 2022-07-12 10:32 | PM.IMPN ---
Progress Note: A&P Assessment and Plan (1) Sepsis: Code(s): A41.9 - Sepsis, unspecified organism Status: Acute Assessment and Plan: Severe sepsis with ANABELL lactic acidosis encephalopathy Unclear source RSV positive chest x-rays negative UA is not suggestive of infection Continue vancomycin continue ceftriaxone Gram-positive cocci in blood culture noted. Identified as Enterococcus faecalis. Will continue vancomycin. Stop ceftriaxone (2) RSV infection: Code(s): B33.8 - Other specified viral diseases Status: Acute Assessment and Plan: Supportive care. (3) Abnormal urinalysis: Code(s): R82.90 - Unspecified abnormal findings in urine Status: Acute Assessment and Plan: Urine looks contaminated however given sepsis picture she has been started on empiric antibiotics, cultures negative so far (4) Hpplj-qu-qzmzwaq kidney injury: Code(s): N17.9 - Acute kidney failure, unspecified; N18.9 - Chronic kidney disease, unspecified Status: Acute Assessment and Plan: Resolve with creatinine now down to 1.0. It was likely severe dehydration related. Mildly cast in the UA. Otherwise bland. IV resuscitation is also severe metabolic acidosis will change fluid to bicarb drip Seems urine output has improved a bit since initiation of IV fluids Renal ultrasound pending Matt in place Nephrology consult Urine output has improved. Creatinine has continued to improve down to 3. Metabolic acidosis improved as well. Change bicarb drip with 1 amp of bicarb due to ongoing hypernatremia. Fluids changed mildly hypernatremic replace potassium nephrology following appreciate his recommendations (5) Hyperkalemia: Code(s): E87.5 - Hyperkalemia Status: Resolved Assessment and Plan: Potassium has improved to 5.6 with IV fluids which will be continued. One amp bicarb ordered given concomitant acidosis. (6) Metabolic acidosis: Code(s): E87.20 - Acidosis, unspecified Status: Acute Assessment and Plan: Due to a combination of renal failure, lactic acidosis, and non gap hyperchloremic acidosis. Started on bicarb Change fluid to included D5 water with 1 amp of bicarb Now bicarb has been stopped only on D5 water (7) Metabolic encephalopathy: Code(s): G93.41 - Metabolic encephalopathy Status: Acute Assessment and Plan: Due to a combination of worsening renal failure with significant uremia, electrolyte derangements, and infection. Brain CT negative Slowly improving with correction of her electrolytes and metabolic issues and renal failure Encephalopathy is still ongoing despite correction his metabolic problems. His renal failure hyponatremia has been corrected. plan for primary today. Follow up EEG results. Neurology consultation if continues to be an issue (8) Acute respiratory failure with hypoxia: Code(s): J96.01 - Acute respiratory failure with hypoxia Status: Acute Assessment and Plan: Patient was reportedly hypoxic with an SpO2 in the 50s on EMS arrival however that has not been appreciated here. I suspect that she is so clamped down and cyanotic that they were not getting an accurate reading. SpO2 is currently in the high 90s on room air. Continue to monitor respiratory status still critically ill Discussed with family 07/07/2022 Slowly improving (9) Hyperglycemia: Code(s): R73.9 - Hyperglycemia, unspecified Status: Acute Assessment and Plan: Accu-Cheks are in the 120-1733 range. Metformin on hold (no documented history of diabetes). No ketones noted in urine. HGB A1c is 5.9. Dextrose drip since NPO (10) Hypokalemia: Code(s): E87.6 - Hypokalemia Status: Acute Assessment and Plan: will be supplemented. Plan Hypernatremia change fluid to D5 water with 50 of sodium bicarb. Slow improvement in sodium level. Currently at 146.
--- NOTE | 2022-07-12 10:56 | WPDNEUROLOGY ---
Neurology EEG Report General Information Date of Study: 07/12/22 TEST Routine EEG DIAGNOSIS Altered mental status CONDITION OF RECORDING Encephalopathic EEG NUMBER [id number] CLINICAL HISTORY Patient currently admitted due to sepsis and acute kidney disease. Has remained encephalopathic despite treatment of underlying illness. EEG DESCRIPTION The recording is continuous. There is quite some movement artifact that occasionally obscures the recording. There is no well-developed posterior dominant rhythm, although anterior-posterior gradient is present. The background rhythm consists of mostly delta, theta, and alpha range rhythm. There are no significant asymmetries in the background. Normal sleep architecture is not visualized. There are no electrographic seizures or epileptiform features. Activation procedures were not performed. IMPRESSION This is an abnormal routine EEG due to the presence of diffuse background slowing. This finding is suggestive of moderate encephalopathy. There are no electrographic seizures or epileptiform features. Clinical correlation is recommended.
[2022-07-12 11:12] LABS: Basophils Absolute Auto 0.1 K/mm3 (0.0-0.1); Eosinophils Absolute Auto 0.3 K/mm3 (0-0.3); Hemoglobin 9.7 g/dL (12.0-15.0); Immature Granulocyte Percent A 7.9 % (0-0.5); Lymphocytes Absolute Auto 2.44 K/mm3 (0.9-3.2); Lymphocytes Percent Auto 21.3 % (18.3-44.2); Mean Corpuscular HGB Conc 31.3 g/dl (32-36); Mean Corpuscular Hemoglobin 31.3 pg (26-34); Monocytes Absolute Auto 0.8 K/mm3 (0.1-0.6); Monocytes Percent Auto 7.3 % (2.6-8.5); Neutrophils Absolute Auto 6.8 K/mm3 (1.3-6.7); Neutrophils Percent Auto 59.5 % (45.5-73.1); Platelet Count Result 221 k/mm3 (150-375); Red Cell Distribution Width 13.2 % (11.5-14.5); White Blood Count 11.5 K/mm3 (4.5-10.0)
[2022-07-12 12:15] LABS: Glucose Point of Care 129 mg/dl (65-105)
--- NOTE | 2022-07-12 13:52 | PCNFU ---
Nutrition Follow-Up Complete: Inadequate Oral Intake as related to unresponsiveness as evidenced by no po intake. Goal: Meet estimated nutritional needs - Meeting goal per NG feeding Pt current nutrition is Nepro @ 40 ml/h with flushes 200 ml q 6 hours. Nutrition recommendation: Continue same tube feeding order Last recorded weight is 82 kg. Bowel Motility: Liquid stool per FMS Labs Reviewed: Alb 2.7, K+ 3.1, BUN 23, Cre 1.2 Meds Noted: Rocephin, Aricept,memantine, zofran, protonix, vancomycin Skin: Rash to buttocks, not open Additional Notes: Tolerating tube feeding. Running at goal rate. Flushes ordered per MD. Continue to monitor. Will monitor every Tuesday and Tuesday.
[2022-07-12] MEDS: POTASSIUM CHLORIDE 20 MEQ PACKET (FOR LIQUID) 40 MEQ PO (15:05)
[2022-07-12 16:03] LABS: Glucose Point of Care 138 mg/dl (65-105)
[2022-07-12 16:20] LABS: Potassium 3.5 mmol/L (3.4-5.0)
[2022-07-12 23:38] LABS: Glucose Point of Care 107 mg/dl (65-105)
[2022-07-13] VITALS (17 sets, daily range): BP systolic 100–136; BP diastolic 40–77; PULSE 71–104; RESP 16–24; TEMP 36.8–37.2; O2SAT 95–99
[2022-07-13] MEDS: ACETAMINOPHEN 325 MG TABLET 650 MG BY MOUTH (03:18)
[2022-07-13 05:41] LABS: Hematocrit 28.7 % (37.0-47.0); Mean Corpuscular HGB Conc 31.4 g/dl (32-36); Mean Corpuscular Hemoglobin 31.3 pg (26-34); Mean Corpuscular Volume 99.7 fl (80-100); Mean Platelet Volume 11.2 fl (7.4-10.4); Platelet Count Result 201 k/mm3 (150-375); Red Blood Count 2.88 M/mm3 (4.2-5.4); Red Cell Distribution Width 13.2 % (11.5-14.5); White Blood Count 11.2 K/mm3 (4.5-10.0)
[2022-07-13 05:54] LABS: Anion Gap 4 mmol/L (8-16); Blood Urea Nitrogen 17 mg/dL (7-17); Calcium 7.4 mg/dL (8.4-10.2); Carbon Dioxide 22 mmol/L (22-30); Chloride 118 mmol/L (98-107); Estimated CRCL calculation 46 ml/min; Estimated Glomerular Filt Rate 53; Glucose 144 mg/dL (65-110); Potassium 3.1 mmol/L (3.4-5.0); Sodium 144 mmol/L (137-145)
[2022-07-13 06:47] LABS: Glucose Point of Care 166 mg/dl (65-105)
[2022-07-13] MEDS: POTASSIUM CHLORIDE INJ 40 MEQ in SODIUM CHLORIDE 0.9% IV 500 ML 130 MEQ IVPB (10:04)
[2022-07-13] MEDS: LORATADINE 10 MG TABLET PO (10:04)
[2022-07-13] MEDS: PANTOPRAZOLE SODIUM IV 40 MG VIAL IV PUSH ×2 (10:05→21:50)
[2022-07-13] MEDS: POTASSIUM CHLORIDE 20 MEQ PACKET (FOR LIQUID) PO (10:05)
[2022-07-13] MEDS: HEPARIN SODIUM 5,000 UNITS/ML VIAL 5000 UNITS SUB-Q ×2 (10:07→21:50)
--- NOTE | 2022-07-13 11:38 | PM.IMPN ---
Progress Note: A&P Assessment and Plan (1) Sepsis: Code(s): A41.9 - Sepsis, unspecified organism Status: Acute Assessment and Plan: Severe sepsis with ANABELL lactic acidosis encephalopathy Unclear source RSV positive chest x-rays negative Gram-positive cocci in blood culture noted. Identified as Enterococcus faecalis. Will continue vancomycin. Stop ceftriaxone (2) RSV infection: Code(s): B33.8 - Other specified viral diseases Status: Acute Assessment and Plan: Supportive care. (3) Abnormal urinalysis: Code(s): R82.90 - Unspecified abnormal findings in urine Status: Acute Assessment and Plan: Urine looks contaminated however given sepsis picture she has been started on empiric antibiotics, cultures negative so far (4) Icfxk-jo-vrorbji kidney injury: Code(s): N17.9 - Acute kidney failure, unspecified; N18.9 - Chronic kidney disease, unspecified Status: Acute Assessment and Plan: Resolve with creatinine now down to 1.0. It was likely severe dehydration related. Mildly cast in the UA. Otherwise bland. IV resuscitation is also severe metabolic acidosis will change fluid to bicarb drip Seems urine output has improved a bit since initiation of IV fluids Renal ultrasound pending Matt in place Nephrology consult (5) Hyperkalemia: Code(s): E87.5 - Hyperkalemia Status: Resolved Assessment and Plan: Potassium has improved - monitor (6) Metabolic acidosis: Code(s): E87.20 - Acidosis, unspecified Status: Acute Assessment and Plan: Due to a combination of renal failure, lactic acidosis, and non gap hyperchloremic acidosis. Started on bicarb monitor (7) Metabolic encephalopathy: Code(s): G93.41 - Metabolic encephalopathy Status: Acute Assessment and Plan: Due to a combination of worsening renal failure with significant uremia, electrolyte derangements, and infection. Brain CT negative Slowly improving with correction of her electrolytes and metabolic issues and renal failure Encephalopathy is still ongoing despite correction his metabolic problems. His renal failure hyponatremia has been corrected. plan for primary today. Follow up EEG results. Neurology consultation if continues to be an issue (8) Acute respiratory failure with hypoxia: Code(s): J96.01 - Acute respiratory failure with hypoxia Status: Acute Assessment and Plan: Patient was reportedly hypoxic with an SpO2 in the 50s on EMS arrival however that has not been appreciated here. I suspect that she is so clamped down and cyanotic that they were not getting an accurate reading. SpO2 is currently in the high 90s on room air. (9) Hyperglycemia: Code(s): R73.9 - Hyperglycemia, unspecified Status: Acute Assessment and Plan: Accu-Cheks are in the 120-1733 range. Metformin on hold (no documented history of diabetes). No ketones noted in urine. HGB A1c is 5.9. Dextrose drip since NPO (10) Hypokalemia: Code(s): E87.6 - Hypokalemia Status: Acute Assessment and Plan: will be supplemented. Plan Hypernatremia change fluid to D5 water with 50 of sodium bicarb. Slow improvement in sodium level. Currently at 146. Continue free water supplementation PO. DVT prophylaxis heparin subQ Will start tube feeds Advanced tube feed Dietitian consultation Subjective Date/time seen: 07/13/22 11:38 patient is sleeping. Wakes up but no meaningful conversation Question baseline. Exam Narrative: GENERAL: Chronically ill-appearing, more responsive and Still does not follow commands HEAD: Normocephalic, atraumatic. EYES: PERRL and EOMI. Spontaneous eye opening. No icterus. ENT: Dry mucous membranes CHEST: coarse breath sounds bilaterally, No respiratory distress. HEART: Regular rate and rhythm ABDOMEN: Soft, nontender, nondistended. EXTREM
[2022-07-13 12:15] LABS: Glucose Point of Care 161 mg/dl (65-105)
[2022-07-13 23:50] LABS: Glucose Point of Care 139 mg/dl (65-105)
[2022-07-14] VITALS (12 sets, daily range): BP systolic 118–141; BP diastolic 41–71; PULSE 83–89; RESP 16–24; TEMP 36.4–37.2; O2SAT 97–100
[2022-07-14 06:40] LABS: Glucose Point of Care 156 mg/dl (65-105)
[2022-07-14] MEDS: PANTOPRAZOLE SODIUM IV 40 MG VIAL IV PUSH ×2 (08:56→23:12)
[2022-07-14] MEDS: HEPARIN SODIUM 5,000 UNITS/ML VIAL 5000 UNITS SUB-Q ×2 (08:56→23:12)
[2022-07-14] MEDS: LORATADINE 10 MG TABLET PO (08:56)
[2022-07-14] MEDS: POTASSIUM CHLORIDE 20 MEQ PACKET (FOR LIQUID) PO (08:57)
[2022-07-14 09:08] LABS: Hematocrit 27.3 % (37.0-47.0); Hemoglobin 8.5 g/dL (12.0-15.0); Mean Corpuscular HGB Conc 31.1 g/dl (32-36); Mean Corpuscular Hemoglobin 31.4 pg (26-34); Mean Corpuscular Volume 100.7 fl (80-100); Platelet Count Result 232 k/mm3 (150-375); Red Blood Count 2.71 M/mm3 (4.2-5.4); Red Cell Distribution Width 13.6 % (11.5-14.5); White Blood Count 12.6 K/mm3 (4.5-10.0)
[2022-07-14 09:18] LABS: Anion Gap 3 mmol/L (8-16); Blood Urea Nitrogen 17 mg/dL (7-17); Calcium 7.4 mg/dL (8.4-10.2); Carbon Dioxide 21 mmol/L (22-30); Chloride 115 mmol/L (98-107); Estimated CRCL calculation 46 ml/min; Estimated Glomerular Filt Rate 53; Glucose 139 mg/dL (65-110); Potassium 3.3 mmol/L (3.4-5.0); Sodium 139 mmol/L (137-145)
[2022-07-14 13:00] LABS: Glucose Point of Care 142 mg/dl (65-105)
[2022-07-14 17:10] LABS: Glucose Point of Care 141 mg/dl (65-105)
--- NOTE | 2022-07-14 18:12 | PM.IMPN ---
Progress Note: A&P Assessment and Plan (1) Sepsis: Code(s): A41.9 - Sepsis, unspecified organism Status: Acute Assessment and Plan: Severe sepsis with ANABELL lactic acidosis encephalopathy. Unclear source but probably from septicemia with Enterococcus CXR negative Will continue vancomycin. monitor white count. (2) RSV infection: Code(s): B33.8 - Other specified viral diseases Status: Acute Assessment and Plan: Supportive care. (3) Btbtq-ff-zgnizqo kidney injury: Code(s): N17.9 - Acute kidney failure, unspecified; N18.9 - Chronic kidney disease, unspecified Status: Acute Assessment and Plan: Cr 6.3 on admission. Resolve with creatinine now down to 1.0. It was likely severe dehydration related. Off IV fluids now (4) Metabolic acidosis: Code(s): E87.20 - Acidosis, unspecified Status: Acute Assessment and Plan: Due to a combination of renal failure, lactic acidosis, and non gap hyperchloremic acidosis. Treated appropriately. Condition has resolved. Continue to monitor. (5) Metabolic encephalopathy: Code(s): G93.41 - Metabolic encephalopathy Status: Acute Assessment and Plan: Due to a combination of worsening renal failure with significant uremia, electrolyte derangements, and infection. Brain CT negative . 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 mental status slowly improving by reviewing the notes. Appreciate Neurology input. (6) Acute respiratory failure with hypoxia: Code(s): J96.01 - Acute respiratory failure with hypoxia Status: Acute Assessment and Plan: Patient was reportedly hypoxic with an SpO2 in the 50s on EMS arrival however that has not been appreciated here. (7) Hyperglycemia: Code(s): R73.9 - Hyperglycemia, unspecified Status: Acute Assessment and Plan: A1c 5.9. Glucose reviewed. Continue sliding scale protocol. (8) Hypokalemia: Code(s): E87.6 - Hypokalemia Status: Acute Assessment and Plan: Potassium low at times. This has been replaced. Continue to monitor. Check magnesium. (9) Abnormal urinalysis: Code(s): R82.90 - Unspecified abnormal findings in urine Status: Acute Assessment and Plan: Urine looks contaminated however given sepsis picture she has been started on empiric antibiotics UCx negative. UTI ruled out (10) Hyperkalemia: Code(s): E87.5 - Hyperkalemia Status: Resolved Assessment and Plan: Resolved Plan Hypernatremia change fluid to D5 water with 50 of sodium bicarb. Slow improvement in sodium level. Currently at 146. Continue free water supplementation PO. DVT prophylaxis heparin subQ Will start tube feeds Advanced tube feed Dietitian consultation Subjective Date/time seen: 07/14/22 18:12 Interval history: 76yo female with dementia, DM and HTN here from [facility] for evaluation after she was found unresponsive and hypoxic. Assuming care. Chart reviewed. Patient alert but essentially nonverbal. Review of Systems Review of Systems: ROS unobtainable: Yes unobtainable due to mental status Exam Narrative: AF 98.3 151/63 84 16 98% ra Gen - no acute distress lying semi recumbent in bed HEENT - NG tube secured to the left naris. Chest - Lungs clear anteriorly CV - or urine in. S1-S2. Telemetry showing no significant dysrhythmias Abd - Soft, NT/ND, Positive BS - Matt secured draining clear yellow urine Ext - No pedal edema Neuro - Awake. nonverbal. does track. calm Skin - Warm and dry Objective Data Vital Signs Vital Signs: Vital Signs - 24 hr 07/13/22 20:39 07/13/22 20:00 07/13/22 20:00 Temperature 98.7 F Pulse Rate 97 97 95 Respiratory Rate 22 H 22 H Blood Pressure 115/43 L Pulse Oximetry 99 99 Oxygen Delivery Room Air 07/13/22 22:00
[2022-07-14 23:45] LABS: Glucose Point of Care 142 mg/dl (65-105)
[2022-07-15] VITALS (9 sets, daily range): BP systolic 123–157; BP diastolic 51–84; PULSE 80–109; RESP 18–20; TEMP 36.3–36.4; O2SAT 96–100
[2022-07-15 07:16] LABS: Albumin Level 2.8 g/dL (3.5-5.1); Anion Gap 6 mmol/L (8-16); Blood Urea Nitrogen 16 mg/dL (7-17); Calcium 7.7 mg/dL (8.4-10.2); Carbon Dioxide 19 mmol/L (22-30); Chloride 115 mmol/L (98-107); Estimated CRCL calculation 51 ml/min; Estimated Glomerular Filt Rate 60; Glucose 135 mg/dL (65-110); Magnesium 1.4 mg/dL (1.6-2.3); Phosphorus 2.7 mg/dL (2.5-4.5); Potassium 3.5 mmol/L (3.4-5.0); Sodium 140 mmol/L (137-145)
[2022-07-15 08:27] LABS: Basophils Absolute Auto 0.1 K/mm3 (0.0-0.1); Basophils Percent Auto 0.8 % (0.2-1.2); Eosinophils Absolute Auto 0.3 K/mm3 (0-0.3); Eosinophils Percent Auto 1.8 % (0-4.4); Hematocrit 31.2 % (37.0-47.0); Hemoglobin 9.9 g/dL (12.0-15.0); Immature Granulocyte Absolute 0.89 K/mm3 (0.00-0.031); Immature Granulocyte Percent A 5.4 % (0-0.5); Immature Platelet Fraction Pct 11.3 % (0.9-11.2); Lymphocytes Absolute Auto 2.16 K/mm3 (0.9-3.2); Lymphocytes Percent Auto 13.1 % (18.3-44.2); Mean Corpuscular HGB Conc 31.7 g/dl (32-36); Mean Corpuscular Hemoglobin 31.1 pg (26-34); Mean Corpuscular Volume 98.1 fl (80-100); Mean Platelet Volume 11.7 fl (7.4-10.4); Monocytes Absolute Auto 0.7 K/mm3 (0.1-0.6); Monocytes Percent Auto 4.5 % (2.6-8.5); Neutrophils Absolute Auto 12.3 K/mm3 (1.3-6.7); Neutrophils Percent Auto 74.4 % (45.5-73.1); Nucleated Red Blood Cells Perc 0.1 % (0.0-0.2); Platelet Count Result 133 k/mm3 (150-375); Red Blood Count 3.18 M/mm3 (4.2-5.4); Red Cell Distribution Width 13.4 % (11.5-14.5); White Blood Count 16.5 K/mm3 (4.5-10.0)
[2022-07-15] MEDS: HEPARIN SODIUM 5,000 UNITS/ML VIAL 5000 UNITS SUB-Q (08:52)
[2022-07-15] MEDS: MAGNESIUM SULF 2 GM/WATER 50ML 2 GM/50 ML BAG IVPB (08:52)
[2022-07-15] MEDS: LORATADINE 10 MG TABLET PO (08:53)
[2022-07-15] MEDS: PANTOPRAZOLE SODIUM IV 40 MG VIAL IV PUSH (08:53)
[2022-07-15] MEDS: POTASSIUM CHLORIDE 20 MEQ PACKET (FOR LIQUID) PO (08:53)
[2022-07-15 12:31] LABS: Glucose Point of Care 155 mg/dl (65-105)
--- NOTE | 2022-07-15 14:54 | PM.DS ---
DS: Admitting Diagnosis Discharge Date 07/15/22 Admitting Diagnosis Unresponsive DS: Discharge Diagnosis Discharge Diagnosis (1) Sepsis: Code(s): A41.9 - Sepsis, unspecified organism Status: Acute (2) RSV infection: Code(s): B33.8 - Other specified viral diseases Status: Acute (3) Rqhqo-lr-ujsvpxg kidney injury: Code(s): N17.9 - Acute kidney failure, unspecified; N18.9 - Chronic kidney disease, unspecified Status: Acute (4) Metabolic acidosis: Code(s): E87.20 - Acidosis, unspecified Status: Acute (5) Metabolic encephalopathy: Code(s): G93.41 - Metabolic encephalopathy Status: Acute (6) Acute respiratory failure with hypoxia: Code(s): J96.01 - Acute respiratory failure with hypoxia Status: Acute (7) Hyperglycemia: Code(s): R73.9 - Hyperglycemia, unspecified Status: Acute (8) Hypokalemia: Code(s): E87.6 - Hypokalemia Status: Acute (9) Abnormal urinalysis: Code(s): R82.90 - Unspecified abnormal findings in urine Status: Acute (10) Hyperkalemia: Code(s): E87.5 - Hyperkalemia Status: Resolved DS: Summary Hospital Course Reason for hospitalization: 76yo female with dementia, DM and HTN here from [facility] for evaluation after she was found unresponsive and hypoxic. Please see H&P for details Hospital Course: Severe sepsis with ANABELL, lactic acidosis and encephalopathy present on admission. Unclear source but probably from septicemia with Enterococcus for ?UTI or GI source. CXR negative. Treated with vancomycin.?RSV infection on admission but influenza and COVID negative. She also had jknys-pj-kfxbule kidney injury withCr 6.3 on admission. Resolve with creatinine now down to 0.9.? It was likely severe dehydration related. She also had metabolic acidosis due to a combination of renal failure, lactic acidosis, and non gap hyperchloremic acidosis.? Treated appropriately.? Condition has resolved.?For the metabolic encephalopathy, felt due to a combination of worsening renal failure with significant uremia, electrolyte derangements, and infection. Brain CT negative.?Brain MRI shows extensive nonspecific cerebral white matter disease worsened since 2014. Patient had dysphagia requiring a feeding tube. She required restraints since she was pulling out the tube. Family decided to proceed with hospice care. [facility] with hospice consult on 07/15/22. Discussed with dtr (JANET) who was in agreement with plan. Status at Discharge Cognitive/behavioral status at discharge: Stable Time Spent with Patient Time attestation: Total time spent providing and/or coordinating discharge services: 35 minutes Time spent: Greater than 30 minutes Exam Narrative: AF 97.6 123/51 80 18 100% ra Gen - no acute distress lying semi recumbent in bed HEENT - NG tube secured to the left naris (to be removed before discharge). Chest - Lungs clear anteriorly CV - RRR. S1-S2. Abd - Soft, NT/ND, Positive BS - Matt secured draining clear yellow urine Ext - No pedal edema Neuro - somnolent Skin - Warm and dry DS: Data Data Completed and Pending Labs on day of discharge: Labs from last 24 hours 07/15/22 07/15/22 07/15/22 12:20 08:15 06:41 WBC 16.5 H RBC 3.18 L Hgb 9.9 L Hct 31.2 L MCV 98.1 MCH 31.1 MCHC 31.7 L RDW 13.4 Plt Count 133 L MPV 11.7 H Immature Gran % (Auto) 5.4 H Neut % (Auto) 74.4 H Lymph % (Auto) 13.1 L Greene % (Auto) 4.5 Eos % (Auto) 1.8 Baso % (Auto) 0.8 Lymph # (Auto) 2.16 Greene # (Auto) 0.7 H Eos # (Auto) 0.3 Baso # (Auto) 0.1 Abs Immat Gran (auto) 0.89 H Absolute Neuts (auto) 12.3 H Absolute Nucleated RBC 0.0 Nucleated RBC % 0.1 % Immature Plt Fraction 11.3 H Sodium 140 Potassium 3.5 Chloride 115 H Carbon Dioxide 19 L Anion Gap 6 L BU
== END 2022-07-15 19:23 | disposition hospice, home (50) | DRG 871 ==
LOC: ANHED 14:42 → ANHIMU 19:37
PROVIDERS: Internal Medicine; Internal Medicine Nephrology; Nurse Practitioner; Physician Assistant; Admitting Provider Internal Medicine; Emergency Provider Emergency Medicine; PCP Family Medicine; Visit Provider Internal Medicine
DX: A41.81 Sepsis due to Enterococcus (principal); G93.41 Metabolic encephalopathy; J96.01 Acute respiratory failure with hypoxia; N17.9 Acute kidney failure, unspecified; E87.0 Hyperosmolality and hypernatremia; E87.20 Acidosis, unspecified; I13.0 Hypertensive heart and chronic kidney disease with heart failure and stage 1 through stage 4 chronic kidney disease, or unspecified chronic kidney disease; R65.20 Severe sepsis without septic shock; R82.90 Unspecified abnormal findings in urine; R13.10 Dysphagia, unspecified; B97.4 Respiratory syncytial virus as the cause of diseases classified elsewhere; E78.5 Hyperlipidemia, unspecified; E87.5 Hyperkalemia; E83.52 Hypercalcemia; E86.0 Dehydration; E11.22 Type 2 diabetes mellitus with diabetic chronic kidney disease; E11.65 Type 2 diabetes mellitus with hyperglycemia; E87.8 Other disorders of electrolyte and fluid balance, not elsewhere classified; F02.80 Dementia in other diseases classified elsewhere, unspecified severity, without behavioral disturbance, psychotic disturbance, mood disturbance, and anxiety; G30.9 Alzheimer's disease, unspecified; I50.9 Heart failure, unspecified; M19.90 Unspecified osteoarthritis, unspecified site; N18.32 Chronic kidney disease, stage 3b; Z20.822 Contact with and (suspected) exposure to COVID-19; Z96.653 Presence of artificial knee joint, bilateral; Z90.49 Acquired absence of other specified parts of digestive tract; Z66 Do not resuscitate; Z96.698 Presence of other orthopedic joint implants; Z79.84 Long term (current) use of oral hypoglycemic drugs
CPT/HCPCS: 36415; 36569; 70450; 70551; 71045; 76775; 80048; 80053; 80069; 80202; 81001; 82274; 82803; 82948; 83036; 83605; 83735; 84132; 84145; 84295; 84443; 84484; 85025; 85027; 85055; 85610; 85730; 86140; 87040; 87086; 87088; 87147; 87181; 87186; 87493; 87637; 93005; 93306; 93922; 93970; 95816; 96361; 96365; 99285; A9270; C1751; C9113; J0696; J1644; J3370; J3475; J3480; J7030; J7040; J7070